=== PATIENT | female | born 1950 | race African-American/Black ===

== ENCOUNTER 2022-05-29 09:49 | Inpatient (IN) | payer OTHER, SELFPAY ==
[2022-05-29] VITALS (8 sets, daily range): BP systolic 105–175; BP diastolic 61–94; PULSE 62–127; RESP 16–26; TEMP 36.4–36.9; O2SAT 84–97; BMI 24.5
--- NOTE | ~2022-05-29 | XR_ITS ---
EXAMINATION: XR CHEST CLINICAL INFORMATION: Cough and fever COMPARISON: None TECHNIQUE: Frontal view of the chest was obtained. FINDINGS: The lungs are well-expanded with patchy opacity seen in both lung bases likely developing infiltrates and/or atelectasis. The upper lungs are clear. The heart size and pulmonary vascularity is normal. No gross bony abnormality seen. XR/XR chest 1V IMPRESSION: Patchy opacity in both lung bases likely developing infiltrates and/or atelectasis.
--- NOTE | ~2022-05-29 | US_ITS ---
EXAMINATION: US ABDOMEN COMPLETE CLINICAL INFORMATION: Elevated LFTs. COMPARISON: None TECHNIQUE: Real-time imaging of the abdominal viscera. FINDINGS: PANCREAS: Normal. ABDOMINAL AORTA: Atherosclerotic disease. The proximal abdominal aorta measures up to 2.4 cm. INFERIOR VENA CAVA: Visualized portions are normal. LIVER: Increased parenchymal parenchymal echogenicity but otherwise normal in size and shape. There is a 0.9 x 0.5 x 0.6 cm hyperechoic lesion in the left hepatic lobe. No biliary ductal dilatation. GALLBLADDER: Normal. The gallbladder is physiologically distended without evidence of stones, sludge, polyps, wall thickening or pericholecystic fluid. COMMON BILE DUCT: Normal in caliber measuring 0.2 cm in diameter. RIGHT KIDNEY: There is a 0.9 cm simple cyst in the midpole, for which no imaging follow-up is recommended. No hydronephrosis or renal calculi. The kidney measures 10.5 cm in maximum dimension. LEFT KIDNEY: Normal. No hydronephrosis. No renal calculi or focal parenchymal lesions. The kidney measures 9.6 cm in maximum dimension. SPLEEN: Normal. The spleen measures 8.9 cm in maximum dimension. FREE FLUID: None. US/US abdomen complete IMPRESSION: 1. Nonspecific 0.9 cm hyperechoic lesion in the left hepatic lobe. Recommend further evaluation with a dynamic abdominal MRI with and without intravenous contrast. 2. Increased echogenicity of the liver parenchyma is nonspecific but most commonly on the basis of diffuse hepatocellular disease such as hepatic steatosis. 3. Atherosclerotic disease of the abdominal aorta which measures up to 2.4 cm in diameter. 4. Simple cyst in the right kidney for which no imaging follow-up is recommended.
--- NOTE | 2022-05-29 10:40 | ECG_ITS ---
Test Reason : SOB Blood Pressure : / mmHG Vent. Rate : 112 BPM Atrial Rate : 112 BPM P-R Int : 126 ms QRS Dur : 088 ms QT Int : 324 ms P-R-T Axes : 058 024 057 degrees QTc Int : 442 ms Sinus tachycardia Possible Left atrial enlargement Borderline ECG No previous ECGs available Referred By: Joyce Prescott Electronically Signed By:CRISS BLOOM
--- NOTE | 2022-05-29 10:47 | ED.SOB ---
HPI - SOB/Dyspnea General Chief Complaint: Dyspnea Stated Complaint: SOB Cough Dizzy Time Seen by Provider: 05/29/22 10:26 Source: patient and family Mode of arrival: wheelchair Limitations: no limitations History of Present Illness HPI Narrative: 71 yo female from home hx of smoking but denies any other PMH states she has had 3 COVID vaccines reports shortness of breath and cough since . She feels weak and fatigued with anorexia as well. Last couple of days the patient is more confused. The patient denies every having anything like this before but was around a sick coughing child for the holidays MD elicited complaint: shortness of breath and cough Onset (ago): day(s) (7) Timing: progressively worsening Severity: moderate Exacerbating factors: exertion and coughing Relieving factors: nothing Associated symptoms: cough, sputum production, nausea/vomiting and chest congestion Treatment prior to arrival: none Related Data Home Medications Medication Instructions Recorded Confirmed multivitamin 1 tab PO DAILY 05/29/22 05/29/22 Allergies Allergy/AdvReac Type Severity Reaction Status Date / Time No Known Allergies Allergy Verified 05/29/22 10:25 Review of Systems Review of Systems: Constitutional : No Fever, pos Chills, pos fatigue, pos anorexia ENT/Mouth : No sore throat, No Rhinorrhea, No Swallowing Difficulty Eyes: No Eye Pain, No Swelling, No Redness Cardiovascular : No Chest Pain, positive SOB, No Orthopnea, positive Edema Respiratory : pos Cough, pos Sputum, No Wheezing, positive dyspnea Gastrointestinal : No Nausea, No Vomiting, No Diarrhea, No abdominal Pain, No Hematochezia, No Melena Genitourinary : No Dysuria, No Urinary Frequency, No Hematuria Musculoskeletal : No joint pain, No Myalgias Skin : No Skin Lesions, No rash Neuro : pos Weakness, No Numbness, No Dizziness, No Headache Psych : No Anxiety/Panic, No Depression Heme/Lymph: No Bruising, No Lymphadenopathy Endocrine : No Polyuria, No Polydipsia All other systems reviewed and are negative [facility] Past Medical History Attestation statement: The following information was validated with the patient. Medical History No pertinent past medical history Family History Family History Father Diabetes Mother Heart problem Social History Social History Alcohol intake: unknown Patient Tobacco Use Status: Current everyday Tobacco user Smoked in Last 30 Days: No Advance Directives: Yes Advance Directives Information Provided: No Advance Directives on File: No Physical Exam Vital Signs: Vital Signs: Last Vital Signs Temp 97.5 F 05/29/22 10:23 Pulse 96 05/29/22 15:44 Resp 17 05/29/22 15:44 BP 106/62 05/29/22 13:44 Pulse Ox 96 05/29/22 13:44 O2 Del Method 05/29/22 13:44 O2 Flow Rate 4 05/29/22 13:44 BMI result Body Mass Index 24.5 Appearance: Alert. Oriented X3. Mild acute distress. Eyes: Pupils equal, round and reactive to light. ENT: Pharynx dry MM Neck: Normal inspection. Neck supple. CVS: tachycardic heart rate and rhythm. Pulses normal. Respiratory: Mild respiratory distress - tachypnea, labored 84% on RA. Breath sounds very diminished and coarse, wet cough Abdomen: Soft and nontender. Skin: Skin warm and dry. Normal skin color. Normal skin turgor. Extremities: No lower extremity edema. No calf ttp Neuro: Oriented X 3. No motor deficit. No sensory deficit. Medications Administered Generic Name Dose Route Start Last Admin Trade Name Freq PRN Reason Stop Dose Admin Albuterol Sulfate 2.5 mg/ 0 mg 05/29/22 16:00 05/29/22 15:43 Ipratropium [place] 0.5 mg INHALE 2.5 each RQ4H WHILE AWAKE WYATT Administration Enoxaparin Sodium 40 mg 05/29/22 14:45 05/29/22 15:36 Enoxaparin Sodium 40 Mg/0.4 Ml Syringe SUBCUT 40 mg Q24H WYATT Administration Methylprednisolone Sodium Succinate 40 mg 05/29/22 14:45 05/29/22 15:37 Methylprednisolone Sod Succ 40 Mg/Ml Vial IVPUSH 40 mg Q12H WYATT Administration Oseltamivir Phosphate 30 mg 05/29/22 14:45 05/29/22 15:36 Oseltamivir Phosphate 30 Mg Capsule PO 30 mg Q12H WYATT Administration Sodium Chloride 3 ml 05/29/22 16:00 05/29/22 15:52 0.9 % Sodium Chloride Flush 3 Ml Syringe IVFLUSH 3 ml QSHIFT WYATT Administration Discontinued Medications Generic Name Dose Route Start Last Admin Trade Name Meredith PRN Reason Stop Dose Admin Acetaminophen 650 mg 05/29/22 10:37 05/29/22 11:25 Acetaminophen 325 Mg Tablet PO 05/29/22 10:38 650 mg ONCE ONE Administration Albuterol Sulfate 2.5 mg 05/29/22 10:37 05/29/22 11:21 Albuterol Sulfate (0.083%) 2.5 Mg/3 Ml Vial.Neb INHALE 05/29/22 10:38 2.5 mg ONCE ONE Administration Sodium Chloride 1,000 mls @ 999 mls/hr 05/29/22 10:45 05/29/22 12:53 Ns IVCONT 05/29/22 11:45 Infused .Q1H1M WYATT Infusion Ceftriaxone Sodium 1 gm/ 50 mls @ 100 mls/hr 05/29/22 11:43 05/29/22 13:27 Sodium Chloride IV 05/29/22 12:12 Infused ONCE ONE Infusion Azithromycin 500 mg/ Sodium 250 mls @ 125 mls/hr 05/29/22 11:43 05/29/22 15:15 Chloride IV 05/29/22 13:42 Infused ONCE ONE Infusion Medical Decision Making Medical Decision Making [facility] Narrative: 71 yo female smoker denies PMH here with c/o hypoxia, weakness, fatigue, cough after being exposed to sick child at this time will need labs, cultures, viral panel - CXR for pneumonia, IVF, tylenol, neb treatment - suspect infection denies CP VTE seems unlikely no recent travel went on a cruise in february. At this time planned admit given hypoxia. I have reviewed and interpreted the patient's labs and reviewed and interpreted radiologist readings of studies done in ED today. Differential Diagnosis Differential Diagnoses: The differential diagnosis associated with the presentation includes pneumonia, covid, CHF, viral illness Admission/Observation Consideration of admission/observation: Escalation of care including admission/observation considered admit for hypoxia Consult Healthcare Provider Management of the patient was discussed with: Hospitalist plan to admit Lab Data [facility] Lab Attestation statement: I reviewed the patient's lab results. Result Diagrams: 05/29/22 11:08 05/29/22 11:08 Labs: Lab Results 01/03/23 01/03/23 01/03/23 Range/Units 11:07 11:07 11:07 WBC (4.8-10.8) X10*3/uL RBC (4.20-5.50) X10*6/uL Hgb (12.0-16.0) g/dl Hct (37.0-47.0) % MCV (80.0-98.0) fL MCH (27.0-33.0) pg MCHC (31.0-35.0) g/dl RDW (11.0-16.0) % Plt Count (160-400) X10*3/uL MPV (9.4-12.3) fL Immature Gran % (Auto) (0.0-0.4) % Neut % (Auto) (45-73) % Lymph % (Auto) (20-40) % [place] % (Auto) (2-11) % Eos % (Auto) (0-4) % Baso % (Auto) (0-2) % Lymph # (Auto) (1.2-4.9) X10*3/uL [place] # (Auto) (0.1-1.2) X10*3/uL Eos # (Auto) (0.0-0.4) X10*3/uL Baso # (Auto) (0.0-0.2) X10*3/uL Abs Immat Gran (auto) (0.00-0.03) X10*3/uL Absolute Neuts (auto) (2.0-8.3) x10*3/uL Absolute Nucleated RBC (0.0-0.012) X10*3/uL Nucleated RBC % (auto) (0.0-0.2) /100WBC Smear Tech's Comments PT (10.0-13.1) SEC INR (0.9-1.1) VBG pH (7.32-7.43) VBG pCO2 mmHg VBG pO2 mmHg VBG HCO3 (22-26) mmol/L VBG O2 Saturation % VBG Base Excess mmol/L Sodium (135-145) mmol/L Potassium (3.3-5.1) mmol/L Chloride (96-108) mmol/L Carbon Dioxide (22-29) mmol/L Anion Gap (12-20) BUN (9-16) mg/dL Creatinine (0.5-1.4) mg/dL Estim Creat Clear Calc Estimated GFR Random Glucose (60-115) mg/dL Lactic Acid 2.3 H* (0.5-2.0) mmol/L Calcium (8.4-10.2) mg/dL Magnesium (1.6-2.6) mg/dL Ferritin 252 H (10-250) ng/mL Total Bilirubin (0.0-1.0) mg/dL Direct Bilirubin (0.0-0.5) mg/dL AST (5-31) U/L ALT (0-31) U/L Alkaline Phosphatase (39-117) U/L Lactate Dehydrogenase (122-220) U/L Troponin I High Sens 25.8 H (<3.5-17.0) ng/L C-Reactive Protein (< or = 0.50) mg/dL B-Natriuretic Peptide (<100) pg/mL Total Protein (6.5-8.0) g/dL Albumin (3.5-5.0) g/dL Procalcitonin ng/mL Urine Color Urine Appearance Urine pH (5.0-9.0) Ur Specific Justin (1.005-1.025) Urine Protein (Neg-Trace) mg/dL Urine Glucose (UA) (Negative) mg/dL Urine Ketones (Negative) mg/dL Urine Blood (Negative) Urine Nitrite (Negative) Ur Leukocyte Esterase (Negative) Urine RBC (0-2) /HPF Urine WBC (0-5) /HPF Ur Squamous Epith Cells (0-2) /HPF Urine Bacteria (None Seen) Hyaline Casts (0-2) /LPF Granular Casts Influenza Type A (PCR) (Negative) Influenza Type B (PCR) (Negative) RSV RNA Qual (PCR) (Negative) SARS-CoV-2 RNA (RT-PCR) (Negative) 05/29/22 05/29/22 05/29/22 Range/Units 11:07 11:07 11:08 WBC 6.9 (4.8-10.8) X10*3/uL RBC 4.36 (4.20-5.50) X10*6/uL Hgb 12.1 (12.0-16.0) g/dl Hct 36.7 L (37.0-47.0) % MCV 84.2 (80.0-98.0) fL MCH 27.8 (27.0-33.0) pg MCHC 33.0 (31.0-35.0) g/dl RDW 16.9 H (11.0-16.0) % Plt Count 189 (160-400) X10*3/uL MPV 11.4 (9.4-12.3) fL Immature Gran % (Auto) 0.6 H (0.0-0.4) % Neut % (Auto) 80.2 H (45-73) % Lymph % (Auto) 11.2 L (20-40) % [place] % (Auto) 7.6 (2-11) % Eos % (Auto) 0.0 (0-4) % Baso % (Auto) 0.4 (0-2) % Lymph # (Auto) 0.8 L (1.2-4.9) X10*3/uL [place] # (Auto) 0.5 (0.1-1.2) X10*3/uL Eos # (Auto) 0.0 (0.0-0.4) X10*3/uL Baso # (Auto) 0.0 (0.0-0.2) X10*3/uL Abs Immat Gran (auto) 0.04 H (0.00-0.03) X10*3/uL Absolute Neuts (auto) 5.5 (2.0-8.3) x10*3/uL Absolute Nucleated RBC 0.000 (0.0-0.012) X10*3/uL Nucleated RBC % (auto) 0.0 (0.0-0.2) /100WBC Smear Tech's Comments VERIFIED PT (10.0-13.1) SEC INR (0.9-1.1) VBG pH (7.32-7.43) VBG pCO2 mmHg VBG pO2 mmHg VBG HCO3 (22-26) mmol/L VBG O2 Saturation % VBG Base Excess mmol/L Sodium (135-145) mmol/L Potassium (3.3-5.1) mmol/L Chloride (96-108) mmol/L Carbon Dioxide (22-29) mmol/L Anion Gap (12-20) BUN (9-16) mg/dL Creatinine (0.5-1.4) mg/dL Estim Creat Clear Calc Estimated GFR Random Glucose (60-115) mg/dL Lactic Acid (0.5-2.0) mmol/L Calcium (8.4-10.2) mg/dL Magnesium (1.6-2.6) mg/dL Ferritin (10-250) ng/mL Total Bilirubin (0.0-1.0) mg/dL Direct Bilirubin (0.0-0.5) mg/dL AST (5-31) U/L ALT (0-31) U/L Alkaline Phosphatase (39-117) U/L Lactate Dehydrogenase (122-220) U/L Troponin I High Sens (<3.5-17.0) ng/L C-Reactive Protein (< or = 0.50) mg/dL B-Natriuretic Peptide (<100) pg/mL Total Protein (6.5-8.0) g/dL Albumin (3.5-5.0) g/dL Procalcitonin 1.64 ng/mL Urine Color Urine Appearance Urine pH (5.0-9.0) Ur Specific Justin (1.005-1.025) Urine Protein (Neg-Trace) mg/dL Urine Glucose (UA) (Negative) mg/dL Urine Ketones (Negative) mg/dL Urine Blood (Negative) Urine Nitrite (Negative) Ur Leukocyte Esterase (Negative) Urine RBC (0-2) /HPF Urine WBC (0-5) /HPF Ur Squamous Epith Cells (0-2) /HPF Urine Bacteria (None Seen) Hyaline Casts (0-2) /LPF Granular Casts Influenza Type A (PCR) POSITIVE A (Negative) Influenza Type B (PCR) NEGATIVE (Negative) RSV RNA Qual (PCR) NEGATIVE (Negative) SARS-CoV-2 RNA (RT-PCR) NEGATIVE (Negative) 05/29/22 05/29/22 05/29/22 Range/Units 11:08 11:08 11:08 WBC (4.8-10.8) X10*3/uL RBC (4.20-5.50) X10*6/uL Hgb (12.0-16.0) g/dl Hct (37.0-47.0) % MCV (80.0-98.0) fL MCH (27.0-33.0) pg MCHC (31.0-35.0) g/dl RDW (11.0-16.0) % Plt Count (160-400) X10*3/uL MPV (9.4-12.3) fL Immature Gran % (Auto) (0.0-0.4) % Neut % (Auto) (45-73) % Lymph % (Auto) (20-40) % [place] % (Auto) (2-11) % Eos % (Auto) (0-4) % Baso % (Auto) (0-2) % Lymph # (Auto) (1.2-4.9) X10*3/uL [place] # (Auto) (0.1-1.2) X10*3/uL Eos # (Auto) (0.0-0.4) X10*3/uL Baso # (Auto) (0.0-0.2) X10*3/uL Abs Immat Gran (auto) (0.00-0.03) X10*3/uL Absolute Neuts (auto) (2.0-8.3) x10*3/uL Absolute Nucleated RBC (0.0-0.012) X10*3/uL Nucleated RBC % (auto) (0.0-0.2) /100WBC Smear Tech's Comments PT 17.8 H (10.0-13.1) SEC INR 1.5 H (0.9-1.1) VBG pH (7.32-7.43) VBG pCO2 mmHg VBG pO2 mmHg VBG HCO3 (22-26) mmol/L VBG O2 Saturation % VBG Base Excess mmol/L Sodium 134 L (135-145) mmol/L Potassium 3.8 (3.3-5.1) mmol/L Chloride 96 (96-108) mmol/L Carbon Dioxide 27 (22-29) mmol/L Anion Gap 15 (12-20) BUN 23 H (9-16) mg/dL Creatinine 1.03 (0.5-1.4) mg/dL Estim Creat Clear Calc 46.8 Estimated GFR 53 Random Glucose 136 H (60-115) mg/dL Lactic Acid (0.5-2.0) mmol/L Calcium 8.4 (8.4-10.2) mg/dL Magnesium 2.4 (1.6-2.6) mg/dL Ferritin (10-250) ng/mL Total Bilirubin 0.9 (0.0-1.0) mg/dL Direct Bilirubin 0.4 (0.0-0.5) mg/dL AST 68 H (5-31) U/L ALT 33 H (0-31) U/L Alkaline Phosphatase 60 (39-117) U/L Lactate Dehydrogenase 351 H (122-220) U/L Troponin I High Sens (<3.5-17.0) ng/L C-Reactive Protein 26.88 H (< or = 0.50) mg/dL B-Natriuretic Peptide 39 (<100) pg/mL Total Protein 7.3 (6.5-8.0) g/dL Albumin 3.7 (3.5-5.0) g/dL Procalcitonin ng/mL Urine Color Urine Appearance Urine pH (5.0-9.0) Ur Specific Justin (1.005-1.025) Urine Protein (Neg-Trace) mg/dL Urine Glucose (UA) (Negative) mg/dL Urine Ketones (Negative) mg/dL Urine Blood (Negative) Urine Nitrite (Negative) Ur Leukocyte Esterase (Negative) Urine RBC (0-2) /HPF Urine WBC (0-5) /HPF Ur Squamous Epith Cells (0-2) /HPF Urine Bacteria (None Seen) Hyaline Casts (0-2) /LPF Granular Casts Influenza Type A (PCR) (Negative) Influenza Type B (PCR) (Negative) RSV RNA Qual (PCR) (Negative) SARS-CoV-2 RNA (RT-PCR) (Negative) 05/29/22 05/29/22 Range/Units 11:12 12:10 WBC (4.8-10.8) X10*3/uL RBC (4.20-5.50) X10*6/uL Hgb (12.0-16.0) g/dl Hct (37.0-47.0) % MCV (80.0-98.0) fL MCH (27.0-33.0) pg MCHC (31.0-35.0) g/dl RDW (11.0-16.0) % Plt Count (160-400) X10*3/uL MPV (9.4-12.3) fL Immature Gran % (Auto) (0.0-0.4) % Neut % (Auto) (45-73) % Lymph % (Auto) (20-40) % [place] % (Auto) (2-11) % Eos % (Auto) (0-4) % Baso % (Auto) (0-2) % Lymph # (Auto) (1.2-4.9) X10*3/uL [place] # (Auto) (0.1-1.2) X10*3/uL Eos # (Auto) (0.0-0.4) X10*3/uL Baso # (Auto) (0.0-0.2) X10*3/uL Abs Immat Gran (auto) (0.00-0.03) X10*3/uL Absolute Neuts (auto) (2.0-8.3) x10*3/uL Absolute Nucleated RBC (0.0-0.012) X10*3/uL Nucleated RBC % (auto) (0.0-0.2) /100WBC Smear Tech's Comments PT (10.0-13.1) SEC INR (0.9-1.1) VBG pH 7.47 H (7.32-7.43) VBG pCO2 36 mmHg VBG pO2 56 mmHg VBG HCO3 27 H (22-26) mmol/L VBG O2 Saturation 83.0 % VBG Base Excess 3.5 mmol/L Sodium (135-145) mmol/L Potassium (3.3-5.1) mmol/L Chloride (96-108) mmol/L Carbon Dioxide (22-29) mmol/L Anion Gap (12-20) BUN (9-16) mg/dL Creatinine (0.5-1.4) mg/dL Estim Creat Clear Calc Estimated GFR Random Glucose (60-115) mg/dL Lactic Acid (0.5-2.0) mmol/L Calcium (8.4-10.2) mg/dL Magnesium (1.6-2.6) mg/dL Ferritin (10-250) ng/mL Total Bilirubin (0.0-1.0) mg/dL Direct Bilirubin (0.0-0.5) mg/dL AST (5-31) U/L ALT (0-31) U/L Alkaline Phosphatase (39-117) U/L Lactate Dehydrogenase (122-220) U/L Troponin I High Sens (<3.5-17.0) ng/L C-Reactive Protein (< or = 0.50) mg/dL B-Natriuretic Peptide (<100) pg/mL Total Protein (6.5-8.0) g/dL Albumin (3.5-5.0) g/dL Procalcitonin ng/mL Urine Color Dark Yellow Urine Appearance Turbid Urine pH 5.5 (5.0-9.0) Ur Specific Justin 1.025 (1.005-1.025) Urine Protein 300 (3+) H (Neg-Trace) mg/dL Urine Glucose (UA) Negative (Negative) mg/dL Urine Ketones Trace (Negative) mg/dL Urine Blood Large (3+) H (Negative) Urine Nitrite Negative (Negative) Ur Leukocyte Esterase Trace H (Negative) Urine RBC 11-20 H (0-2) /HPF Urine WBC 0-5 (0-5) /HPF Ur Squamous Epith Cells >20 (0-2) /HPF Urine Bacteria 3+ (None Seen) Hyaline Casts >20 (0-2) /LPF Granular Casts Present Influenza Type A (PCR) (Negative) Influenza Type B (PCR) (Negative) RSV RNA Qual (PCR) (Negative) SARS-CoV-2 RNA (RT-PCR) (Negative) Independent Interpretation I performed an independent interpretation of an: EKG, Plain X-Ray and Ultrasound Interpretation: Rate: 112 Rhythm: sinus tach [place]: normal Normal P waves. Normal GAURI. Normal QRS complex. ST T wave : no DAVEY qTC: normal prior studies: no acute ischemia The study has been interpreted contemporaneously by me. . Radiology Impression Discussion of test interpretation with radiology: I have reviewed the radiologist's reading. Independent Historian Clinical information obtained from an independent historian. History obtained from or confirmed by: Other (daughter) Prescription Management I considered prescription management with: Antiviral (6 days from illness out of window for tamiflu) Critical Care Time Critical Care Time Critical Care Time: Yes Total Critical Care Time: 35 Attestation: neb, IVF, IV antibiotics supplemental oxygen for hypoxia - 4L NC, admission to hospital repeat lactic acidosis, admission I attest to this time spent taking care of the patient Discharge Plan Discharge Clinical Impression: Hypoxia, Acidosis, lactic, Influenza A Pneumonia Qualifiers: Pneumonia type: due to unspecified organism Laterality: bilateral Lung location: unspecified part of lung Qualified Code(s): J18.9 - Pneumonia, unspecified organism Patient Disposition: Admitted As Inpatient
[2022-05-29 11:17] LABS: Venous Blood Gas Refer to POC result
[2022-05-29 11:17] LABS: VBG Base Excess 3.5 mmol/L; VBG HCO3 27 mmol/L (22-26); VBG pCO2 36 mmHg; VBG pH 7.47 (7.32-7.43); VBG pO2 56 mmHg
[2022-05-29 11:18] LABS: Basophils Percent Auto 0.4 % (0-2); Hematocrit 36.7 % (37.0-47.0); Hemoglobin 12.1 g/dl (12.0-16.0); Imm Gran Abs Auto 0.04 X10*3/uL (0.00-0.03); Imm Gran Pct Auto 0.6 % (0.0-0.4); Lymphocytes Absolute Auto 0.8 X10*3/uL (1.2-4.9); Lymphocytes Percent Auto 11.2 % (20-40); MANUAL DIFF FLAG SCAN; Mean Corpuscular Hemoglobin 27.8 pg (27.0-33.0); Mean Corpuscular Volume 84.2 fL (80.0-98.0); Mean Platelet Volume 11.4 fL (9.4-12.3); Monocytes Absolute Auto 0.5 X10*3/uL (0.1-1.2); Monocytes Percent Auto 7.6 % (2-11); Neutrophils Absolute Auto 5.5 x10*3/uL (2.0-8.3); Neutrophils Percent Auto 80.2 % (45-73); Platelet Count 189 X10*3/uL (160-400); Red Blood Count 4.36 X10*6/uL (4.20-5.50); Red Cell Distribution Width 16.9 % (11.0-16.0); SCAN SMEAR FLAG 1; White Blood Count 6.9 X10*3/uL (4.8-10.8)
[2022-05-29] MEDS: Albuterol Sulfate (0.083%) 2.5 MG/3 ML VIAL.NEB INHALE (11:21)
[2022-05-29 11:22] LABS: INTERNATIONAL NORM RATIO 1.5 (0.9-1.1); Prothrombin Time 17.8 SEC (10.0-13.1)
[2022-05-29] MEDS: 0.9 % Sodium Chloride 1,000 ML 999 ML IVCONT (11:25)
[2022-05-29] MEDS: Acetaminophen 325 MG TABLET 650 MG PO (11:25)
[2022-05-29 11:34] LABS: Lactic Acid 2.3 mmol/L (0.5-2.0)
[2022-05-29 11:39] LABS: Troponin-I High Sensitivity 25.8 ng/L (<3.5-17.0)
[2022-05-29 11:39] LABS: B Type Natriuretic Peptide 39 pg/mL (<100)
[2022-05-29 11:40] LABS: Alanine Aminotransferase 33 U/L (0-31); Albumin Level 3.7 g/dL (3.5-5.0); Alkaline Phosphatase 60 U/L (39-117); Anion Gap 15 (12-20); Aspartate Amino Transferase 68 U/L (5-31); Bilirubin Direct 0.4 mg/dL (0.0-0.5); Bilirubin Total 0.9 mg/dL (0.0-1.0); Blood Urea Nitrogen 23 mg/dL (9-16); C Reactive Protein 26.88 mg/dL (< or = 0.50); Calcium 8.4 mg/dL (8.4-10.2); Carbon Dioxide 27 mmol/L (22-29); Chloride 96 mmol/L (96-108); Creatinine Clr Calc Pharmacy 46.8; Estimated Glomerular Filt Rate 53; Glucose Random 136 mg/dL (60-115); Lactate Dehydrogenase 351 U/L (122-220); Magnesium 2.4 mg/dL (1.6-2.6); Potassium 3.8 mmol/L (3.3-5.1); Sodium 134 mmol/L (135-145); Total Protein 7.3 g/dL (6.5-8.0)
[2022-05-29 11:49] LABS: SLIDE REVIEW VERIFIED
--- NOTE | 2022-05-29 11:49 | PHA.MEDREC ---
Pharmacy Consult ? Medication Reconciliation Pharmacy has completed the medication reconciliation.
[2022-05-29 11:58] LABS: Influenza A PCR POSITIVE (Negative); Influenza B PCR NEGATIVE (Negative); Resp Syncy Virus RNA Qual PCR NEGATIVE (Negative); SARS COV2 PCR INHOUSE NEGATIVE (Negative)
[2022-05-29 12:00] LABS: Ferritin 252 ng/mL (10-250); Procalcitonin 1.64 ng/mL
--- NOTE | 2022-05-29 12:00 | PC.NURSE ---
Patient presents to ED with report of increased SOB denies any pulmonary history not on O2 at home denies home medications. AOx 4 neuros intact no factial droop noted no drift or deviation of tongue placed on O2 with good effect LS diminished on auscultation. NSR on threat monitoring analyst denies chest pain. IV access and labs collected and sent
[2022-05-29] MEDS: cefTRIAXone sodium 1 GM in 0.9 % Sodium Chloride 50 ML IV (12:09)
[2022-05-29 12:26] LABS: Appearance Urine Turbid; Color Urine Dark Yellow; Glucose Urine UA Negative (Negative); Leukocyte Esterase Urine Trace (Negative); Nitrite Urine Negative (Negative); PH 5.5 (5.0-9.0); Specific Gravity - Urine 1.025 (1.005-1.025); UMIC TRIGGER UACC YES; Urine Blood Large (3+) (Negative); Urine Ketones Trace mg/dL (Negative); Urine Protein 300 (3+) mg/dL (Neg-Trace)
[2022-05-29 12:34] LABS: Bacteria Urine 3+ (None Seen); Granular Casts Urine Present; Hyaline Casts Urine >20 /LPF (0-2); Squamous Epithelial Cell Urine >20 /HPF (0-2); WBC Urine 0-5 /HPF (0-5)
[2022-05-29] MEDS: Azithromycin 500 MG in 0.9 % Sodium Chloride 250 ML 125 MG IV (12:51)
[2022-05-29 13:13] LABS: Reflex Lactate? Lactic Acid Added
--- NOTE | 2022-05-29 13:18 | P.HPHOSP_ITS ---
History of Present Illness Date of Service: 05/29/22 Attending physician on admission: Gold Perez Chief Complaint: SOB Pt is a 71-year-old female with PMH significant only for smoking a pack of cigarettes a day and drinking a beer a day who presents to the ED with with 3-4 days of worsening shortness of breath with exertion and nonproductive cough. Presents today due to feeling extremely weak, having difficulty breathing, and having prolonged bouts of coughing this morning. Patient denies fever, chills, nausea, vomiting. No chest pain/pressure, palpitations. No abdominal or flank pain. Denies dysuria or urinary frequency. Patient denies a history of a bleeding disorder and denies any incidence of easy bruising or bleeding. Denies a history of epistaxis. Patient denies any confusion. In the ED patient was found to be tachycardic, tachypneic, and hypoxic at O2 sat of 84 on room air. Labs were significant for no leukocytosis, PT of 17.8 and INR of 1.5, lactic acid of 2.3, mildly elevated troponin of 25.8, C-reactive protein of 26.8. Urine positive for UTI. Patient is positive for influenza A. CXR showed patchy opacities in both lung bases likely developing infiltrates and/or atelectasis. EKG showed sinus tach. Pt was treated with azithromycin, ceftriaxone, and albuterol. Pt will be admitted to the hospital for treatment and evaluation of hypoxia in the setting of influenza infection. Review of Systems Review of Systems: Shortness of breath Generalized weakness and fatigue Nonproductive cough Denies chest pain/pressure, palpitations No abdominal pain Denies dysuria Yes all other systems are reviewed and are negative [facility] Medical History No pertinent past medical history Family History Father Diabetes Mother Heart problem Social History Alcohol intake: unknown Patient Tobacco Use Status: Current everyday Tobacco user Smoked in Last 30 Days: No Advance Directives: Yes Advance Directives Information Provided: No Advance Directives on File: No Meds Allergies Allergy/AdvReac Type Severity Reaction Status Date / Time No Known Allergies Allergy Verified 05/29/22 10:25 Active Medications: Current Medications Azithromycin 500 mg/ Sodium (Chloride) 250 mls @ 125 mls/hr IV ONCE ONE Stop: 05/29/22 13:42 Last Admin: 05/29/22 12:51 Dose: 125 mls/hr Pharmacy Consult (Consult Rx Perform Med Rec) 1 each MISCELLANE ONCE PRN PRN Reason: Consult order Home Medications Medication Instructions Recorded Confirmed Last Taken Type multivitamin 1 tab PO DAILY 05/29/22 05/29/22 Unknown History Physical Exam Vital Signs and Narrative: Vital Signs: Last Vital Signs Temp 97.5 F 05/29/22 10:23 Pulse 110 H 05/29/22 11:24 Resp 21 H 05/29/22 11:24 BP 175/84 H 05/29/22 10:23 Pulse Ox 84 L 05/29/22 10:23 O2 Del Method 05/29/22 10:23 BMI result Body Mass Index 24.5 Constitutional: Alert, in no acute distress. Mental Status: Oriented to person, place and time. Eyes: Pupils are equal, round, and reactive to light. Ear, Nose, and Throat: Oropharynx clear, mucous membranes moist. Ears and nose without deformities. Trachea midline. Respiratory: Diminished breath sounds bilaterally. Wet cough noted. Cardiovascular: S1, S2. Tachycardic. No murmurs, rubs, or gallops. Gastrointestinal: Abdomen soft, non-tender, non-distended. Normal bowel sounds. : No CVA tenderness Neurologic: Cranial nerves II-XI are grossly intact. No focal neurological deficits. Moves all extremities spontaneously. Skin: No rashes or lesions noted. Musculoskeletal: No cyanosis or clubbing. Extremities: No edema. Psychiatric: Normal mood and affect. Results Labs CBC and Chem 7: 05/29/22 11:08 05/29/22 11:08 Labs: Laboratory Results - last 24 hr 05/29/22 05/29/22 05/29/22 11:07 11:07 11:07 MCV MCH MCHC RDW Plt Count MPV Immature Gran % (Auto) Neut % (Auto) Lymph % (Auto) [place] % (Auto) Eos % (Auto) Baso % (Auto) Lymph # (Auto) [place] # (Auto) Eos # (Auto) Baso # (Auto) Abs Immat Gran (auto) Absolute Neuts (auto) Absolute Nucleated RBC Nucleated RBC % (auto) Smear Tech's Comments PT INR VBG pH VBG pCO2 VBG pO2 VBG HCO3 VBG O2 Saturation VBG Base Excess Anion Gap Estim Creat Clear Calc Estimated GFR Random Glucose Lactic Acid 2.3 H* Calcium Magnesium Ferritin 252 H Total Bilirubin Direct Bilirubin AST ALT Alkaline Phosphatase Lactate Dehydrogenase Troponin I High Sens 25.8 H C-Reactive Protein B-Natriuretic Peptide Total Protein Albumin Procalcitonin Urine Color Urine Appearance Urine pH Ur Specific [place] Urine Protein Urine Glucose (UA) Urine Ketones Urine Blood Urine Nitrite Ur Leukocyte Esterase Urine RBC Urine WBC Ur Squamous Epith Cells Urine Bacteria Hyaline Casts Granular Casts Influenza Type A (PCR) Influenza Type B (PCR) RSV RNA Qual (PCR) SARS-CoV-2 RNA (RT-PCR) 05/29/22 05/29/22 05/29/22 11:07 11:07 11:08 MCV 84.2 MCH 27.8 MCHC 33.0 RDW 16.9 H Plt Count 189 MPV 11.4 Immature Gran % (Auto) 0.6 H Neut % (Auto) 80.2 H Lymph % (Auto) 11.2 L [place] % (Auto) 7.6 Eos % (Auto) 0.0 Baso % (Auto) 0.4 Lymph # (Auto) 0.8 L [place] # (Auto) 0.5 Eos # (Auto) 0.0 Baso # (Auto) 0.0 Abs Immat Gran (auto) 0.04 H Absolute Neuts (auto) 5.5 Absolute Nucleated RBC 0.000 Nucleated RBC % (auto) 0.0 Smear Tech's Comments VERIFIED PT INR VBG pH VBG pCO2 VBG pO2 VBG HCO3 VBG O2 Saturation VBG Base Excess Anion Gap Estim Creat Clear Calc Estimated GFR Random Glucose Lactic Acid Calcium Magnesium Ferritin Total Bilirubin Direct Bilirubin AST ALT Alkaline Phosphatase Lactate Dehydrogenase Troponin I High Sens C-Reactive Protein B-Natriuretic Peptide Total Protein Albumin Procalcitonin 1.64 Urine Color Urine Appearance Urine pH Ur Specific [place] Urine Protein Urine Glucose (UA) Urine Ketones Urine Blood Urine Nitrite Ur Leukocyte Esterase Urine RBC Urine WBC Ur Squamous Epith Cells Urine Bacteria Hyaline Casts Granular Casts Influenza Type A (PCR) POSITIVE A Influenza Type B (PCR) NEGATIVE RSV RNA Qual (PCR) NEGATIVE SARS-CoV-2 RNA (RT-PCR) NEGATIVE 05/29/22 05/29/22 05/29/22 11:08 11:08 11:08 MCV MCH MCHC RDW Plt Count MPV Immature Gran % (Auto) Neut % (Auto) Lymph % (Auto) [place] % (Auto) Eos % (Auto) Baso % (Auto) Lymph # (Auto) [place] # (Auto) Eos # (Auto) Baso # (Auto) Abs Immat Gran (auto) Absolute Neuts (auto) Absolute Nucleated RBC Nucleated RBC % (auto) Smear Tech's Comments PT 17.8 H INR 1.5 H VBG pH VBG pCO2 VBG pO2 VBG HCO3 VBG O2 Saturation VBG Base Excess Anion Gap 15 Estim Creat Clear Calc 46.8 Estimated GFR 53 Random Glucose 136 H Lactic Acid Calcium 8.4 Magnesium 2.4 Ferritin Total Bilirubin 0.9 Direct Bilirubin 0.4 AST 68 H ALT 33 H Alkaline Phosphatase 60 Lactate Dehydrogenase 351 H Troponin I High Sens C-Reactive Protein 26.88 H B-Natriuretic Peptide 39 Total Protein 7.3 Albumin 3.7 Procalcitonin Urine Color Urine Appearance Urine pH Ur Specific [place] Urine Protein Urine Glucose (UA) Urine Ketones Urine Blood Urine Nitrite Ur Leukocyte Esterase Urine RBC Urine WBC Ur Squamous Epith Cells Urine Bacteria Hyaline Casts Granular Casts Influenza Type A (PCR) Influenza Type B (PCR) RSV RNA Qual (PCR) SARS-CoV-2 RNA (RT-PCR) 05/29/22 05/29/22 11:12 12:10 MCV MCH MCHC RDW Plt Count MPV Immature Gran % (Auto) Neut % (Auto) Lymph % (Auto) [place] % (Auto) Eos % (Auto) Baso % (Auto) Lymph # (Auto) [place] # (Auto) Eos # (Auto) Baso # (Auto) Abs Immat Gran (auto) Absolute Neuts (auto) Absolute Nucleated RBC Nucleated RBC % (auto) Smear Tech's Comments PT INR VBG pH 7.47 H VBG pCO2 36 VBG pO2 56 VBG HCO3 27 H VBG O2 Saturation 83.0 VBG Base Excess 3.5 Anion Gap Estim Creat Clear Calc Estimated GFR Random Glucose Lactic Acid Calcium Magnesium Ferritin Total Bilirubin Direct Bilirubin AST ALT Alkaline Phosphatase Lactate Dehydrogenase Troponin I High Sens C-Reactive Protein B-Natriuretic Peptide Total Protein Albumin Procalcitonin Urine Color Dark Yellow Urine Appearance Turbid Urine pH 5.5 Ur Specific [place] 1.025 Urine Protein 300 (3+) H Urine Glucose (UA) Negative Urine Ketones Trace Urine Blood Large (3+) H Urine Nitrite Negative Ur Leukocyte Esterase Trace H Urine RBC 11-20 H Urine WBC 0-5 Ur Squamous Epith Cells >20 Urine Bacteria 3+ Hyaline Casts >20 Granular Casts Present Influenza Type A (PCR) Influenza Type B (PCR) RSV RNA Qual (PCR) SARS-CoV-2 RNA (RT-PCR) Imaging Radiologist's Impressions: Impressions Chest X-Ray 05/29/22 11:00 IMPRESSION: Patchy opacity in both lung bases likely developing infiltrates and/or atelectasis. Assessment and Plan (1) Hypoxia: Status: Acute (2) Acidosis, lactic: Status: Acute (3) Influenza A: Status: Acute Plan Pt is a 71-year-old female with PMH significant only for smoking a pack of cigarettes a day and drinking a beer a day who presents to the ED with with 3-4 days of worsening shortness of breath with exertion and nonproductive cough. Tested positive for Influenza A. Patient will be admitted to the hospital for treatment evaluation of hypoxia in the setting of influenza infection. Hypoxic respiratory failure in setting of influenza a infection Tamiflu 30 mg b.i.d. 1/5 days, renally dosed DuoNebs Q 4 while awake Solu-Medrol 40 mg b.i.d. Benzonatate t.i.d. p.r.n. for cough Monitor respiratory status Viral Sepsis No evidence of bacterial infection Tachypnea, tachycardia, elevated lactate likely all due to viral infection Elevated lactic acid Likely secondary to influenza infection Trend labs Bacteriuria Ceftriaxone for prophylactic treatment while awaiting cultures Elevated PT, INR Etiology unclear possibly secondary to influenza infection Repeat coag studies in 2 days and trend Full Code Attending:?Dr. Perez DVT Prophylaxis: Lovenox Pt will require a hospitalization of at least two nights for treatment of?hypoxic respiratory failure in setting of influenza. Time Spent With Patient Time: Total time managing care of this patient today ____ minutes. Quality Stroke Does the patient have a stroke diagnosis?: No VTE Prior VTE?: No VTE Risk Level:: Medical - moderate - high VTE Device Contraindication: Treatment Not Indicated VTE Drug Contraindication: N/A - Med Ordered
[2022-05-29] MEDS: Oseltamivir Phosphate 30 MG CAPSULE PO (15:36)
[2022-05-29] MEDS: Enoxaparin Sodium 40 MG/0.4 ML SYRINGE SUBCUT (15:36)
[2022-05-29] MEDS: methylPREDNISolone Sod Succ 40 MG/ML VIAL IVPUSH (15:37)
[2022-05-29 15:44] LABS: ~Lactic Acid-LAB USE ONLY 1.2 mmol/L (0.5-2.0)
[2022-05-29] MEDS: 0.9 % Sodium Chloride Flush 3 ML SYRINGE IVFLUSH (15:52)
--- NOTE | 2022-05-29 18:11 | PC.NURSE ---
Patient sleeping easily arouse no distress noted will CTM
--- NOTE | 2022-05-29 18:59 | PC.NURSE ---
Addendum entered by Ashley Monzon RN 05/29/22 20:07: report given to IRVIN Mcclure Addendum entered by Ashley Monzon RN 05/29/22 19:32: pt is alert and oriented resting in bed no signs of acute distress notice breathing equally unlabored pt on continuos cardiac monitoring denies any chest pain daughter by bedside Original Note: report received from IRVIN Quiñones
[2022-05-30] VITALS (10 sets, daily range): BP systolic 105–137; BP diastolic 59–76; PULSE 74–105; RESP 14–20; TEMP 36.1–36.8; O2SAT 89–100
--- NOTE | 2022-05-30 00:58 | PC.NURSE ---
Patient is resting comfortably with her eyes closed. RR 18. Breathing is non-labored. O2 Sat 98% on O2 at 4 LPM NC. No s/s of distress noted.
[2022-05-30] MEDS: Oseltamivir Phosphate 30 MG CAPSULE PO ×2 (02:16→13:58)
[2022-05-30] MEDS: methylPREDNISolone Sod Succ 40 MG/ML VIAL IVPUSH ×2 (02:16→13:59)
--- NOTE | 2022-05-30 06:23 | MHC.EDTECH ---
PT SLEPT ALL NIGHT ,USE BED SIDE COMMODE AT 6 AM ,CLEAN UP FRESH LINEN MISHA CLEAN CARLOS GIVEN ,PT HAD 120 ML ORANGE JUICE .
[2022-05-30 07:27] LABS: Anion Gap 13 (12-20); Blood Urea Nitrogen 15 mg/dL (9-16); Calcium 8.2 mg/dL (8.4-10.2); Carbon Dioxide 29 mmol/L (22-29); Chloride 99 mmol/L (96-108); Estimated Glomerular Filt Rate > 60; Glucose Random 148 mg/dL (60-115); Potassium 4.3 mmol/L (3.3-5.1); Sodium 137 mmol/L (135-145)
--- NOTE | 2022-05-30 09:01 | MHC.CM.PN ---
Patient is Influenza (+) and unavailable by phone; CM spoke with Daughter/Mica @ [phone]. Patient lives alone in an apartment and is employed, required no DME nor services [employer], has not seen her PCP in 4 years and not been hospitalized since the of her Daughter. Home, self care is the goal and CM has initiated and will follow for dc planning. Patient has received [employer] vax x2.
[2022-05-30] MEDS: Multivitamin TABLET 1 TAB PO (09:09)
[2022-05-30] MEDS: 0.9 % Sodium Chloride Flush 3 ML SYRINGE IVFLUSH ×3 (09:10→19:29)
[2022-05-30] MEDS: cefTRIAXone sodium 1 GM in 0.9 % Sodium Chloride 50 ML IV (11:53)
--- NOTE | 2022-05-30 13:51 | HO.PM.IMPN ---
Subjective Subjective Date of Service: 05/30/22 Interval History: cc: sob interval history:improving Physical Exam Vital Signs: Vital Signs: Last Vital Signs Temp 98.2 F 05/30/22 12:00 Pulse 88 05/30/22 12:11 Resp 20 05/30/22 12:11 BP 122/69 05/30/22 12:00 Pulse Ox 91 L 05/30/22 12:00 O2 Del Method 05/30/22 12:00 O2 Flow Rate 4 05/30/22 07:38 BMI result Body Mass Index 24.5 General: AO X 3, no acute distress Resp: wheezsing bilateral, no accessory muscles used CVS: S1,S2,RRR GI: soft, non tender, non distended Neuro: motor grossly intact, alert Psych: appropriate affect, appropriate insight Objective Data Active Medications Acetaminophen (Acetaminophen 325 Mg Tablet) 650 mg PO Q6H PRN PRN Reason: Pain, Mild (Pain Scale 1-3) Benzonatate (Benzonatate 100 Mg Capsule) 100 mg PO TID PRN PRN Reason: Cough Albuterol Sulfate 2.5 mg/ (Ipratropium [place] 0.5 mg) 0 mg INHALE RQ4H WHILE AWAKE [facility] Last Admin: 05/30/22 12:08 Dose: 2.5 each Documented By: AL Docusate Sodium (Docusate Sodium 100 Mg Capsule) 100 mg PO DAILY PRN PRN Reason: Constipation Enoxaparin Sodium (Enoxaparin Sodium 40 Mg/0.4 Ml Syringe) 40 mg SUBCUT Q24H [facility] Last Admin: 05/29/22 15:36 Dose: 40 mg Documented By: MARBELLA Ceftriaxone Sodium 1 gm/ (Sodium Chloride) 50 mls @ 100 mls/hr IV Q24H [facility] Last Infusion: 05/30/22 12:28 Dose: 0 mls/hr Documented By: KIP Methylprednisolone Sodium Succinate (Methylprednisolone Sod Succ 40 Mg/Ml Vial) 40 mg IVPUSH Q12H [facility] Last Admin: 05/30/22 02:16 Dose: 40 mg Documented By: SANDHYA Multivitamins/Vitamin C (Multivitamin Tablet) 1 tab PO DAILY [facility] Last Admin: 05/30/22 09:09 Dose: 1 tab Documented By: CHUN Ondansetron HCl (Ondansetron Hcl 4 Mg/2 Ml Vial) 4 mg IVPUSH Q8H PRN PRN Reason: Nausea and Vomiting Oseltamivir Phosphate (Oseltamivir Phosphate 30 Mg Capsule) 30 mg PO Q12H [facility] Last Admin: 05/30/22 02:16 Dose: 30 mg Documented By: SANDHYA Pharmacy Consult (Consult Rx Perform Med Rec) 1 each MISCELLANE ONCE PRN PRN Reason: Consult order Sodium Chloride (0.9 % Sodium Chloride Flush 3 Ml Syringe) 3 ml IVFLUSH QSHIFT [facility] Last Admin: 05/30/22 09:10 Dose: 3 ml Documented By: CHUN Labs CBC & Chem 7: 05/29/22 11:08 05/30/22 06:19 Labs: Laboratory Results - last 24 hr 05/29/22 05/30/22 15:26 06:19 Anion Gap 13 Estim Creat Clear Calc 71.0 Estimated GFR > 60 Random Glucose 148 H Lactic Acid F/U @ 2Hr 1.2 Calcium 8.2 L Microbiology Microbiology Results: Microbiology 05/29/22 11:07 Blood Culture - Preliminary Blood - Venous No growth after 24 hours. 05/29/22 11:07 Blood Culture - Preliminary Blood - Venous No growth after 24 hours. Assessment and Plan (1) Pneumonia: Status: Acute Plan 71-year-old female with PMH significant only for smoking a pack of cigarettes a day and drinking a beer a day who presents to the ED with with 3-4 days of worsening shortness of breath with exertion and nonproductive cough. Tested positive for Influenza A.? acute Hypoxic respiratory failure in setting of influenza a infection and likely copd with acute decompensation Tamiflu 30 mg b.i.d. 2/5 days, renally dosed DuoNebs Q 4 while awake Solu-Medrol 40 mg b.i.d. Benzonatate t.i.d. p.r.n. for cough wean o2 as tolerated Viral Sepsis No evidence of bacterial infection Tachypnea, tachycardia, elevated lactate likely all due to viral infection Bacteruria Ceftriaxone empirically transaminitis with elevated INR ?liver disease check US, viral hepatitis panel Full Code DVT Prophylaxis: Lovenox reason for continued hospitalization:weaning o2 Time Spent With Patient Time: Total time managing care of this patient today ____ minutes. Quality Stroke Does the patient have a stroke diagnosis?: No VTE Prior VTE?: No VTE Risk Level:: Medical - moderate - high VTE Device Contraindication: Treatment Not Indicated VTE Drug Contraindication: N/A - Med Ordered
[2022-05-30] MEDS: Enoxaparin Sodium 40 MG/0.4 ML SYRINGE SUBCUT (13:59)
[2022-05-31] VITALS (8 sets, daily range): BP systolic 123–142; BP diastolic 64–70; PULSE 80–99; RESP 12–18; TEMP 36.5–36.9; O2SAT 91–100
[2022-05-31] MEDS: Oseltamivir Phosphate 30 MG CAPSULE PO ×2 (03:07→13:45)
[2022-05-31] MEDS: methylPREDNISolone Sod Succ 40 MG/ML VIAL IVPUSH ×2 (03:07→13:45)
[2022-05-31 07:15] LABS: Hematocrit 29.6 % (37.0-47.0); Hemoglobin 9.8 g/dl (12.0-16.0); Mean Corpuscular HGB Conc 33.1 g/dl (31.0-35.0); Mean Corpuscular Hemoglobin 27.8 pg (27.0-33.0); Mean Corpuscular Volume 84.1 fL (80.0-98.0); Mean Platelet Volume 11.6 fL (9.4-12.3); Platelet Count 319 X10*3/uL (160-400); Red Blood Count 3.52 X10*6/uL (4.20-5.50); Red Cell Distribution Width 17.3 % (11.0-16.0); White Blood Count 13.2 X10*3/uL (4.8-10.8)
[2022-05-31] MEDS: Multivitamin TABLET 1 TAB PO (07:27)
[2022-05-31] MEDS: 0.9 % Sodium Chloride Flush 3 ML SYRINGE IVFLUSH ×3 (07:27→20:46)
[2022-05-31 08:09] LABS: Alanine Aminotransferase 107 U/L (0-31); Albumin Level 3.2 g/dL (3.5-5.0); Alkaline Phosphatase 54 U/L (39-117); Anion Gap 12 (12-20); Aspartate Amino Transferase 144 U/L (5-31); Bilirubin Direct < 0.2 mg/dL (0.0-0.5); Bilirubin Total 0.3 mg/dL (0.0-1.0); Blood Urea Nitrogen 14 mg/dL (9-16); Calcium 8.4 mg/dL (8.4-10.2); Carbon Dioxide 30 mmol/L (22-29); Chloride 98 mmol/L (96-108); Estimated Glomerular Filt Rate > 60; Glucose Fasting 140 mg/dL (60-99); Potassium 4.3 mmol/L (3.3-5.1); Sodium 136 mmol/L (135-145); Total Protein 6.4 g/dL (6.5-8.0)
--- NOTE | 2022-05-31 10:15 | P.PNIM_ITS ---
Subjective Subjective Date of Service: 05/31/22 Interval History: cc: sob interval history:improving Physical Exam Vital Signs: Vital Signs: Last Vital Signs Temp 97.8 F 05/31/22 08:00 Pulse 84 05/31/22 08:00 Resp 18 05/31/22 08:00 BP 136/68 05/31/22 08:00 Pulse Ox 100 05/31/22 08:00 O2 Del Method 05/31/22 08:00 O2 Flow Rate 1.5 05/31/22 08:00 BMI result Body Mass Index 24.5 General: AO X 3, no acute distress Resp: wheezsing bilateral, no accessory muscles used CVS: S1,S2,RRR GI: soft, non tender, non distended Neuro: motor grossly intact, alert Psych: appropriate affect, appropriate insight Objective Data Active Medications Acetaminophen (Acetaminophen 325 Mg Tablet) 650 mg PO Q6H PRN PRN Reason: Pain, Mild (Pain Scale 1-3) Azithromycin (Azithromycin 500 Mg Tablet) 500 mg PO Q24H [facility] Benzonatate (Benzonatate 100 Mg Capsule) 100 mg PO TID PRN PRN Reason: Cough Albuterol Sulfate 2.5 mg/ (Ipratropium [place] 0.5 mg) 0 mg INHALE RQ4H WHILE AWAKE [facility] Last Admin: 05/31/22 07:57 Dose: 2.5 each Documented By: PARIS Docusate Sodium (Docusate Sodium 100 Mg Capsule) 100 mg PO DAILY PRN PRN Reason: Constipation Enoxaparin Sodium (Enoxaparin Sodium 40 Mg/0.4 Ml Syringe) 40 mg SUBCUT Q24H [facility] Last Admin: 05/30/22 13:59 Dose: 40 mg Documented By: KIP Methylprednisolone Sodium Succinate (Methylprednisolone Sod Succ 40 Mg/Ml Vial) 40 mg IVPUSH Q12H [facility] Last Admin: 05/31/22 03:07 Dose: 40 mg Documented By: MONIKA Multivitamins/Vitamin C (Multivitamin Tablet) 1 tab PO DAILY [facility] Last Admin: 05/31/22 07:27 Dose: 1 tab Documented By: KIP Ondansetron HCl (Ondansetron Hcl 4 Mg/2 Ml Vial) 4 mg IVPUSH Q8H PRN PRN Reason: Nausea and Vomiting Oseltamivir Phosphate (Oseltamivir Phosphate 30 Mg Capsule) 30 mg PO Q12H [facility] Last Admin: 05/31/22 03:07 Dose: 30 mg Documented By: MONIKA Pharmacy Consult (Consult Rx Perform Med Rec) 1 each MISCELLANE ONCE PRN PRN Reason: Consult order Sodium Chloride (0.9 % Sodium Chloride Flush 3 Ml Syringe) 3 ml IVFLUSH QSHIFT [facility] Last Admin: 05/31/22 07:27 Dose: 3 ml Documented By: KIP Labs CBC & Chem 7: 05/31/22 07:00 05/31/22 07:00 Labs: Laboratory Results - last 24 hr 05/31/22 05/31/22 07:00 07:00 MCV 84.1 MCH 27.8 MCHC 33.1 RDW 17.3 H Plt Count 319 D MPV 11.6 Absolute Nucleated RBC 0.000 Nucleated RBC % (auto) 0.0 Anion Gap 12 Estim Creat Clear Calc 71.0 Estimated GFR > 60 Fasting Glucose 140 H Calcium 8.4 Total Bilirubin 0.3 Direct Bilirubin < 0.2 AST 144 H ALT 107 H Alkaline Phosphatase 54 Total Protein 6.4 L Albumin 3.2 L Microbiology Microbiology Results: Microbiology 05/29/22 11:07 Blood Culture - Preliminary Blood - Venous No growth after 24 hours. 05/29/22 11:07 Blood Culture - Preliminary Blood - Venous No growth after 24 hours. Assessment and Plan (1) Pneumonia: Status: Acute Plan 71-year-old female with PMH significant only for smoking a pack of cigarettes a day and drinking a beer a day who presents to the ED with with 3-4 days of worsening shortness of breath with exertion and nonproductive cough. Tested positive for Influenza A.? acute Hypoxic respiratory failure in setting of influenza a infection and likely copd with acute decompensation Tamiflu 30 mg b.i.d. 3/5 days, renally dosed DuoNebs Q 4 while awake Solu-Medrol 40 mg b.i.d. Benzonatate t.i.d. p.r.n. for cough azithro wean o2 as tolerated Viral Sepsis No evidence of bacterial infection Tachypnea, tachycardia, elevated lactate likely all due to viral infection Bacteruria no symptoms, will dc rocephin transaminitis with elevated INR ?liver disease check US, viral hepatitis panel Full Code DVT Prophylaxis: Lovenox reason for continued hospitalization:weaning o2 Time Spent With Patient Time: Total time managing care of this patient today ____ minutes. Quality Stroke Does the patient have a stroke diagnosis?: No VTE Prior VTE?: No VTE Risk Level:: Medical - moderate - high VTE Device Contraindication: Treatment Not Indicated VTE Drug Contraindication: N/A - Med Ordered
[2022-05-31] MEDS: Azithromycin 500 MG TABLET PO (10:25)
[2022-05-31] MEDS: Enoxaparin Sodium 40 MG/0.4 ML SYRINGE SUBCUT (13:45)
[2022-06-01] VITALS (7 sets, daily range): BP systolic 124–135; BP diastolic 60–74; PULSE 81–96; RESP 16–18; TEMP 36.1–37.1; O2SAT 84–100
[2022-06-01] MEDS: methylPREDNISolone Sod Succ 40 MG/ML VIAL IVPUSH ×2 (02:53→15:33)
[2022-06-01] MEDS: Oseltamivir Phosphate 30 MG CAPSULE PO ×2 (02:53→15:33)
[2022-06-01] MEDS: Benzonatate 100 MG CAPSULE PO (02:53)
[2022-06-01 06:34] LABS: Hematocrit 30.4 % (37.0-47.0); Mean Corpuscular HGB Conc 32.9 g/dl (31.0-35.0); Mean Corpuscular Hemoglobin 27.9 pg (27.0-33.0); Mean Corpuscular Volume 84.9 fL (80.0-98.0); Mean Platelet Volume 11.2 fL (9.4-12.3); Platelet Count 398 X10*3/uL (160-400); Red Blood Count 3.58 X10*6/uL (4.20-5.50); Red Cell Distribution Width 17.6 % (11.0-16.0); White Blood Count 10.3 X10*3/uL (4.8-10.8)
[2022-06-01 06:57] LABS: Alanine Aminotransferase 86 U/L (0-31); Albumin Level 3.2 g/dL (3.5-5.0); Alkaline Phosphatase 53 U/L (39-117); Anion Gap 14 (12-20); Aspartate Amino Transferase 54 U/L (5-31); Bilirubin Direct < 0.2 mg/dL (0.0-0.5); Bilirubin Total 0.3 mg/dL (0.0-1.0); Blood Urea Nitrogen 11 mg/dL (9-16); Calcium 8.4 mg/dL (8.4-10.2); Carbon Dioxide 28 mmol/L (22-29); Chloride 101 mmol/L (96-108); Estimated Glomerular Filt Rate > 60; Glucose Fasting 115 mg/dL (60-99); Potassium 4.5 mmol/L (3.3-5.1); Sodium 138 mmol/L (135-145); Total Protein 6.3 g/dL (6.5-8.0)
[2022-06-01 09:09] LABS: HBS Num1 0.14 mIU/mL (0-7.99); HBc Num1 0.06 S/CO (0.00-0.79); HBsAGNum1 0.33 S/CO (0.00-0.99); Hepatitis B Core Antibody Nonreactive (Nonreactive); Hepatitis B Surface Antigen Negative (Negative); ~HepC Num1 0.16 S/CO (0.00-0.79); ~Hepatitis B Surface Antibody NONREACTIVE (Nonreactive); ~Hepatitis C Antibody Nonreactive (Nonreactive)
[2022-06-01] MEDS: Azithromycin 500 MG TABLET PO (09:14)
[2022-06-01] MEDS: Multivitamin TABLET 1 TAB PO (09:14)
[2022-06-01] MEDS: 0.9 % Sodium Chloride Flush 3 ML SYRINGE IVFLUSH ×2 (09:15→15:33)
--- NOTE | 2022-06-01 09:57 | P.PNIM_ITS ---
Subjective Subjective Date of Service: 06/01/22 Interval History: cc: sob interval history:improving Physical Exam Vital Signs: Vital Signs: Last Vital Signs Temp 97.8 F 06/01/22 03:52 Pulse 96 06/01/22 09:12 Resp 18 06/01/22 09:12 BP 132/60 06/01/22 03:52 Pulse Ox 100 06/01/22 03:52 O2 Del Method 06/01/22 03:52 O2 Flow Rate 1.5 06/01/22 03:52 BMI result Body Mass Index 24.5 General: AO X 3, no acute distress Resp: wheezsing bilateral, no accessory muscles used CVS: S1,S2,RRR GI: soft, non tender, non distended Neuro: motor grossly intact, alert Psych: appropriate affect, appropriate insight Objective Data Active Medications Acetaminophen (Acetaminophen 325 Mg Tablet) 650 mg PO Q6H PRN PRN Reason: Pain, Mild (Pain Scale 1-3) Azithromycin (Azithromycin 500 Mg Tablet) 500 mg PO Q24H FORMERLY [facility], [facility]1983 Last Admin: 06/01/22 09:14 Dose: 500 mg Documented By: MICHELLE Benzonatate (Benzonatate 100 Mg Capsule) 100 mg PO TID PRN PRN Reason: Cough Last Admin: 06/01/22 02:53 Dose: 100 mg Documented By: MONIKA Albuterol Sulfate 2.5 mg/ (Ipratropium [place] 0.5 mg) 0 mg INHALE RQ4H WHILE AWAKE FORMERLY [facility], 1928–1983 Last Admin: 06/01/22 09:10 Dose: 0.5 each Documented By: SEAMUS Docusate Sodium (Docusate Sodium 100 Mg Capsule) 100 mg PO DAILY PRN PRN Reason: Constipation Enoxaparin Sodium (Enoxaparin Sodium 40 Mg/0.4 Ml Syringe) 40 mg SUBCUT Q24H FORMERLY [facility], [facility]1983 Last Admin: 05/31/22 13:45 Dose: 40 mg Documented By: DABAvelina Methylprednisolone Sodium Succinate (Methylprednisolone Sod Succ 40 Mg/Ml Vial) 40 mg IVPUSH Q12H FOR[facility]LY [facility], [facility]–1983 Last Admin: 06/01/22 02:53 Dose: 40 mg Documented By: MONIKA Multivitamins/Vitamin C (Multivitamin Tablet) 1 tab PO DAILY FORMERLY [facility], [facility]1983 Last Admin: 06/01/22 09:14 Dose: 1 tab Documented By: MICHELLE Ondansetron HCl (Ondansetron Hcl 4 Mg/2 Ml Vial) 4 mg IVPUSH Q8H PRN PRN Reason: Nausea and Vomiting Oseltamivir Phosphate (Oseltamivir Phosphate 30 Mg Capsule) 30 mg PO Q12H FOR[facility], [facility] Last Admin: 06/01/22 02:53 Dose: 30 mg Documented By: MONIKA Pharmacy Consult (Consult Rx Perform Med Rec) 1 each MISCELLANE ONCE PRN PRN Reason: Consult order Sodium Chloride (0.9 % Sodium Chloride Flush 3 Ml Syringe) 3 ml IVFLUSH QSHIFT FOR[facility]LY [facility], [facility] Last Admin: 06/01/22 09:15 Dose: 3 ml Documented By: MICHELLE Labs 06/01/22 05:54 06/01/22 05:54 Labs: Laboratory Results - last 24 hr 06/01/22 06/01/22 05:54 05:54 MCV 84.9 MCH 27.9 MCHC 32.9 RDW 17.6 H Plt Count 398 MPV 11.2 Absolute Nucleated RBC 0.000 Nucleated RBC % (auto) 0.0 Anion Gap 14 Estim Creat Clear Calc 70.0 Estimated GFR > 60 Fasting Glucose 115 H Calcium 8.4 Total Bilirubin 0.3 Direct Bilirubin < 0.2 AST 54 H ALT 86 H Alkaline Phosphatase 53 Total Protein 6.3 L Albumin 3.2 L Microbiology Microbiology Results: Microbiology 05/29/22 11:07 Blood Culture - Preliminary Blood - Venous No growth after 48 hours. 05/29/22 11:07 Blood Culture - Preliminary Blood - Venous No growth after 48 hours. Assessment and Plan (1) Pneumonia: Status: Acute Plan 71-year-old female with PMH significant only for smoking a pack of cigarettes a day and drinking a beer a day who presents to the ED with with 3-4 days of wo rsening shortness of breath with exertion and nonproductive cough. Tested positive for Influenza A.? acute Hypoxic respiratory failure in setting of influenza a infection and likely copd with acute decompensation Tamiflu 30 mg b.i.d. 4/5 days, renally dosed DuoNebs Q 4 while awake Solu-Medrol 40 mg b.i.d. Benzonatate t.i.d. p.r.n. for cough azithro wean o2 as tolerated - not requiring high levels of o2, but desaturates significantly on room air Viral Sepsis No evidence of bacterial infection Tachypnea, tachycardia, elevated lactate likely all due to viral infection Bacteruria no symptoms, dced rocephin transaminitis with elevated INR steatohepatitis possibly etoh, follow up viral studies liver lesion outpatient mri Full Code DVT Prophylaxis: Lovenox reason for continued hospitalization:weaning o2 Time Spent With Patient Time: Total time managing care of this patient today ____ minutes. Quality Stroke Does the patient have a stroke diagnosis?: No VTE Prior VTE?: No VTE Risk Level:: Medical - moderate - high VTE Device Contraindication: Treatment Not Indicated VTE Drug Contraindication: N/A - Med Ordered
[2022-06-01] MEDS: Enoxaparin Sodium 40 MG/0.4 ML SYRINGE SUBCUT (15:33)
[2022-06-02] MEDS: Oseltamivir Phosphate 30 MG CAPSULE PO (02:30)
[2022-06-02] MEDS: methylPREDNISolone Sod Succ 40 MG/ML VIAL IVPUSH (02:30)
[2022-06-02] MEDS: 0.9 % Sodium Chloride Flush 3 ML SYRINGE IVFLUSH ×2 (02:30→10:36)
[2022-06-02 04:00] VITALS: BP 137/70; PULSE 72; RESP 16; TEMP 36.2; O2SAT 98
[2022-06-02 08:00] VITALS: BP 130/60; PULSE 80; RESP 17; TEMP 36; O2SAT 95
[2022-06-02 09:14] VITALS: PULSE 72; RESP 16; O2SAT 93
[2022-06-02] MEDS: Azithromycin 500 MG TABLET PO (10:36)
[2022-06-02] MEDS: Multivitamin TABLET 1 TAB PO (10:37)
--- NOTE | 2022-06-02 11:08 | P.DS_ITS ---
DS: Providers Provider Date of Service: 06/02/22 Date of admission: 05/29/22 14:26 Primary care physician: Unknown Physician DS: Diagnosis Discharge Diagnosis (1) Pneumonia: Status: Acute DS: Summary Hospital Course Hospital Course: from initial hpi: 71-year-old female with PMH significant only for smoking a pack of cigarettes a day and drinking a beer a day who presents to the ED with with 3-4 days of worsening shortness of breath with exertion and nonproductive cough.? Presents today due to feeling extremely weak, having difficulty breathing, and having prolonged bouts of coughing this morning.? Patient denies fever, chills, nausea, vomiting.? No chest pain/pressure, palpitations.? No abdominal or flank pain.? Denies dysuria or urinary frequency.? Patient denies a history of a bleeding disorder and denies any incidence of easy bruising or bleeding.? Denies a history of epistaxis.? Patient denies any confusion. In the ED patient was found to be tachycardic, tachypneic, and hypoxic at O2 sat of 84 on room air. Labs were significant for no leukocytosis, PT of 17.8 and INR of 1.5, lactic acid of 2.3, mildly elevated troponin of 25.8, C-reactive protein of 26.8.? Urine positive for UTI.? Patient is positive for influenza A. CXR showed patchy opacities in both lung bases likely developing infiltrates and/or atelectasis.? EKG showed sinus tach. Pt was treated with azithromycin, ceftriaxone, and albuterol. Pt will be admitted to the hospital for treatment and evaluation of hypoxia in the setting of influenza infection. hospital course: Patient was admitted for Viral sepsis and acute hypoxic respiratory failure in the setting of influenza a infection unlikely COPD with acute decompensation. She was treated with Tamiflu, steroids, bronchodilators, azithromycin. Patient's symptoms resolved. She was noted to still be hypoxic on room air, likely component of chronic hypoxia due to undiagnosed COPD. Patient will be discharged on home oxygen. patient was also noted to have transaminitis, ultrasound of abdomen was consistent with steatohepatitis, possibly due to alcohol, viral studies were negative. She is recommended to follow up outpatient for MRI of the liver to further evaluate lesion seen on CT scan. Patient is feeling better and will be discharged home on prednisone and azithromycin. Time Spent with Patient Time attestation: Total time managing care of this patient today ____ minutes. Discharge coordination time: Greater than 30 minutes Quality: Safe Use of Opioids Does Pt have an Active Cancer Diagnosis on the Problem List?: No Quality: Stroke Does the patient have a stroke diagnosis?: No Physical Exam Vital Signs: Vital Signs: Last Vital Signs Temp 96.8 F 06/02/22 08:00 Pulse 72 06/02/22 09:14 Resp 16 06/02/22 09:14 BP 130/60 06/02/22 08:00 Pulse Ox 95 06/02/22 08:00 O2 Del Method 06/02/22 08:00 O2 Flow Rate 2.0 06/02/22 08:00 BMI result Body Mass Index 24.5 General: AO X 3, no acute distress Resp: CTA bilateral, no accessory muscles used CVS: S1,S2,RRR GI: soft, non tender, non distended Neuro: motor grossly intact, alert Psych: appropriate affect, appropriate insight DS: Data Data Completed and Pending Labs on day of discharge: Preliminary micro results at discharge 05/29/22 11:07 Blood Culture - Preliminary Blood - Venous No growth after 48 hours. 05/29/22 11:07 Blood Culture - Preliminary Blood - Venous No growth after 48 hours. Discharge Plan Discharge Anticipated Discharge Date/Time: 06/02/22 11:05 Patient Disposition: Home, Self-Care Discharge Diagnosis: flu, copd, hepatic steatosis Referrals: Physician,Unknown J [Primary Care Provider] - 1 Week Discharge Medications: New azithromycin 500 mg Tablet 500 mg PO Q24H Qty: 5 0RF prednisone 20 mg tablet 40 mg PO DAILY Qty: 6 0RF Continued multivitamin Tablet 1 tab PO DAILY Discharge Orders: Discharge Order (Routine); Ordered 06/02/22 Ordered By: Mohan Gonzales Diet: Advance to usual diet Activity on Discharge: As tolerated Stand Alone Forms: Patient Portal Discharge page Other Ambulatory Orders: MR abdomen wo/w con (Routine) Timeframe: 1 Week Facility: [facility] - Location: MRI Ordered By: Mohan Gonzales Care Plan Goals: recovery Health Concerns: copd, flu, hypoxia Plan of Treatment: predniosne, azithro, home o2, mri, avoid etoh Assessment: see above
--- NOTE | 2022-06-02 11:40 | MHC.CM.PN ---
PT CLEARED TO DC HOME TODAY WITH NO SERVICES FAMILY TO TRANSPORT
[2022-06-02 14:01] VITALS: PULSE 80; PULSE 90; PULSE 95; O2SAT 86; O2SAT 87; O2SAT 90; O2SAT 96
[2022-06-02 14:04] VITALS: PULSE 95; RESP 18; O2SAT 95
[2022-06-02 15:17] VITALS: BP 135/65; PULSE 89; RESP 16; TEMP 36.2; O2SAT 95
== END 2022-06-02 17:20 | disposition home or self-care (01) | DRG 720 ==
LOC: HO.ED 11:50 → HO.EDOVER 14:51 → HO.S3 05-30 10:40
PROVIDERS: Admitting Provider Student in an Organized Health Care Education/Training Program; Emergency Provider Emergency Medicine; Visit Provider Internal Medicine
DX: A41.89 Other specified sepsis (principal); J96.01 Acute respiratory failure with hypoxia; J10.1 Influenza due to other identified influenza virus with other respiratory manifestations; N39.0 Urinary tract infection, site not specified; J44.1 Chronic obstructive pulmonary disease with (acute) exacerbation; K70.0 Alcoholic fatty liver; F17.210 Nicotine dependence, cigarettes, uncomplicated; Z20.822 Contact with and (suspected) exposure to COVID-19; Z71.6 Tobacco abuse counseling; Z79.899 Other long term (current) drug therapy
CPT/HCPCS: 0241U; 36415; 71045; 76700; 80048; 80076; 81001; 82728; 82803; 83605; 83615; 83735; 83880; 84145; 84484; 85025; 85027; 85610; 86140; 86704; 86706; 86803; 87040; 87340; 93005; 94640; 99285; J0456; J0696; J1650; J2920

== ENCOUNTER 2022-06-08 12:01 | Outpatient (REF) | payer OTHER, SELFPAY ==
[2022-06-08 13:38] LABS: MANUAL DIFF FLAG NO
[2022-06-08 13:41] LABS: Appearance Urine Clear; Color Urine Yellow; Glucose Urine UA Negative (Negative); Leukocyte Esterase Urine Negative (Negative); Nitrite Urine Negative (Negative); PH 7.5 (5.0-9.0); Specific Gravity - Urine <= 1.005 (1.005-1.025); Urine Blood Negative (Negative); Urine Ketones Negative (Negative); Urine Protein Negative (Neg-Trace)
[2022-06-08 13:43] LABS: Basophils Percent Auto 0.4 % (0-2); Eosinophils Absolute Auto 0.1 X10*3/uL (0.0-0.4); Eosinophils Percent Auto 1.1 % (0-4); Hematocrit 33.8 % (37.0-47.0); Hemoglobin 10.5 g/dl (12.0-16.0); Imm Gran Abs Auto 0.04 X10*3/uL (0.00-0.03); Imm Gran Pct Auto 0.7 % (0.0-0.4); Lymphocytes Absolute Auto 1.7 X10*3/uL (1.2-4.9); Lymphocytes Percent Auto 29.6 % (20-40); Mean Corpuscular HGB Conc 31.1 g/dl (31.0-35.0); Mean Corpuscular Hemoglobin 27.3 pg (27.0-33.0); Mean Corpuscular Volume 87.8 fL (80.0-98.0); Mean Platelet Volume 9.8 fL (9.4-12.3); Monocytes Absolute Auto 0.3 X10*3/uL (0.1-1.2); Neutrophils Absolute Auto 3.5 x10*3/uL (2.0-8.3); Neutrophils Percent Auto 62.2 % (45-73); Platelet Count 461 X10*3/uL (160-400); Red Blood Count 3.85 X10*6/uL (4.20-5.50); White Blood Count 5.7 X10*3/uL (4.8-10.8)
[2022-06-08 13:54] LABS: Alanine Aminotransferase 21 U/L (0-31); Albumin Level 3.3 g/dL (3.5-5.0); Alkaline Phosphatase 58 U/L (39-117); Anion Gap 11 (12-20); Aspartate Amino Transferase 15 U/L (5-31); Bilirubin Total 0.4 mg/dL (0.0-1.0); Blood Urea Nitrogen 7 mg/dL (9-16); Calcium 8.6 mg/dL (8.4-10.2); Carbon Dioxide 27 mmol/L (22-29); Chloride 108 mmol/L (96-108); Estimated Glomerular Filt Rate > 60; Glucose Random 82 mg/dL (60-115); Potassium 4.7 mmol/L (3.3-5.1); Sodium 141 mmol/L (135-145); Total Protein 6.1 g/dL (6.5-8.0)
[2022-06-08 13:55] LABS: Estimated Average Glucose 114 mg/dL; Hemoglobin A1c % 5.6 %
[2022-06-08 14:28] LABS: Creatinine Urine 17.21 mg/dL; Microalbumin Urine < 5.0 mg/L
== END 2022-06-08 12:02 | disposition home or self-care (01) ==
LOC: HO.10HDL 12:01
PROVIDERS: Visit Provider Internal Medicine
DX: J44.9 Chronic obstructive pulmonary disease, unspecified (principal); R73.03 Prediabetes; J18.9 Pneumonia, unspecified organism; R31.9 Hematuria, unspecified
CPT/HCPCS: 36415; 80053; 81003; 82043; 83036; 85025

== ENCOUNTER 2022-09-14 17:05 | Outpatient (REF) | payer OTHER, SELFPAY ==
[2022-09-14 17:15] LABS: MANUAL DIFF FLAG NO
[2022-09-14 18:16] LABS: Basophils Percent Auto 0.7 % (0-2); Eosinophils Absolute Auto 0.2 X10*3/uL (0.0-0.4); Eosinophils Percent Auto 3.3 % (0-4); Hematocrit 33.3 % (37.0-47.0); Hemoglobin 10.6 g/dl (12.0-16.0); Lymphocytes Absolute Auto 1.8 X10*3/uL (1.2-4.9); Mean Corpuscular HGB Conc 31.8 g/dl (31.0-35.0); Mean Corpuscular Hemoglobin 27.7 pg (27.0-33.0); Mean Corpuscular Volume 86.9 fL (80.0-98.0); Mean Platelet Volume 10.7 fL (9.4-12.3); Monocytes Absolute Auto 0.4 X10*3/uL (0.1-1.2); Monocytes Percent Auto 9.1 % (2-11); Neutrophils Absolute Auto 2.1 x10*3/uL (2.0-8.3); Neutrophils Percent Auto 45.9 % (45-73); Platelet Count 256 X10*3/uL (160-400); Red Blood Count 3.83 X10*6/uL (4.20-5.50); White Blood Count 4.5 X10*3/uL (4.8-10.8)
[2022-09-14 18:28] LABS: Anion Gap 13 (12-20); Blood Urea Nitrogen 9 mg/dL (9-16); Calcium 9.2 mg/dL (8.4-10.2); Carbon Dioxide 26 mmol/L (22-29); Chloride 107 mmol/L (96-108); Estimated Glomerular Filt Rate > 60; Glucose Random 83 mg/dL (60-115); Iron 42 mcg/dL (30-160); Percent Iron Saturation 11 % (15-50); Potassium 4.2 mmol/L (3.3-5.1); Sodium 142 mmol/L (135-145); Total Iron Binding Capacity 374 mcg/dL (228-428); Unsaturated Iron Binding 332 ug/dL
== END 2022-09-14 17:06 | disposition home or self-care (01) ==
LOC: HO.LAB 17:05
PROVIDERS: PCP Internal Medicine; Visit Provider Internal Medicine
DX: J44.9 Chronic obstructive pulmonary disease, unspecified (principal); D64.9 Anemia, unspecified
CPT/HCPCS: 36415; 80048; 83540; 85025

== ENCOUNTER 2023-04-30 13:51 | Outpatient (REF) | payer OTHER, SELFPAY ==
--- NOTE | ~2023-04-30 | XR_ITS ---
EXAMINATION: XR WRIST, LEFT CLINICAL INFORMATION: Left wrist pain COMPARISON: None available. TECHNIQUE: Four views of the left wrist. FINDINGS: No acute visible fracture or dislocation. Mild multi joint arthritic changes. Positive ulnar variance. Joint spaces and alignment are otherwise maintained. Soft tissues are unremarkable. XR/XR wrist LT min 3V IMPRESSION: 1. No acute visible fracture or dislocation. 2. Mild multi joint arthritic changes. 3. Positive ulnar variance.
[2023-04-30 14:02] LABS: MANUAL DIFF FLAG NO
[2023-04-30 14:15] LABS: Basophils Percent Auto 0.7 % (0-2); Eosinophils Absolute Auto 0.1 X10*3/uL (0.0-0.4); Eosinophils Percent Auto 2.6 % (0-4); Hematocrit 36.8 % (37.0-47.0); Hemoglobin 11.4 g/dl (12.0-16.0); Imm Gran Abs Auto 0.01 X10*3/uL (0.00-0.03); Imm Gran Pct Auto 0.2 % (0.0-0.4); Lymphocytes Absolute Auto 1.9 X10*3/uL (1.2-4.9); Lymphocytes Percent Auto 34.3 % (20-40); Mean Platelet Volume 10.6 fL (9.4-12.3); Monocytes Absolute Auto 0.5 X10*3/uL (0.1-1.2); Monocytes Percent Auto 8.2 % (2-11); Platelet Count 260 X10*3/uL (160-400); Red Blood Count 4.23 X10*6/uL (4.20-5.50); Red Cell Distribution Width 16.5 % (11.0-16.0); White Blood Count 5.5 X10*3/uL (4.8-10.8)
[2023-04-30 14:50] LABS: Anion Gap 12 (12-20); Blood Urea Nitrogen 7 mg/dL (9-16); Calcium 9.5 mg/dL (8.4-10.2); Carbon Dioxide 28 mmol/L (22-29); Chloride 104 mmol/L (96-108); Cholesterol 193 mg/dL (<200); Estimated Glomerular Filt Rate > 60; Glucose Random 93 mg/dL (60-115); Iron 58 mcg/dL (30-160); Percent Iron Saturation 15 % (15-50); Potassium 4.4 mmol/L (3.3-5.1); Sodium 140 mmol/L (135-145); Total Iron Binding Capacity 375 mcg/dL (228-428); Unsaturated Iron Binding 317 ug/dL
== END 2023-04-30 13:52 | disposition home or self-care (01) ==
LOC: HO.LAB 13:51
PROVIDERS: PCP Internal Medicine; Visit Provider Internal Medicine
DX: M25.532 Pain in left wrist (principal); D64.9 Anemia, unspecified; J44.9 Chronic obstructive pulmonary disease, unspecified; Z82.49 Family history of ischemic heart disease and other diseases of the circulatory system
CPT/HCPCS: 36415; 73110; 80048; 82465; 83540; 85025

== ENCOUNTER 2023-09-20 15:42 | Outpatient (REF) | payer OTHER, SELFPAY ==
[2023-09-20 19:00] LABS: Alanine Aminotransferase 12 U/L (0-31); Albumin Level 4.1 g/dL (3.5-5.0); Alkaline Phosphatase 86 U/L (39-117); Anion Gap 11 (12-20); Aspartate Amino Transferase 16 U/L (5-31); Bilirubin Total 0.2 mg/dL (0.0-1.0); Blood Urea Nitrogen 8 mg/dL (9-16); Carbon Dioxide 29 mmol/L (22-29); Chloride 105 mmol/L (96-108); Cholesterol 173 mg/dL (<200); Estimated Glomerular Filt Rate 58; Glucose Random 83 mg/dL (60-115); Iron 24 mcg/dL (30-160); Percent Iron Saturation 6 % (15-50); Potassium 4.2 mmol/L (3.3-5.1); Sodium 141 mmol/L (135-145); Total Iron Binding Capacity 379 mcg/dL (228-428); Total Protein 7.2 g/dL (6.5-8.0); Unsaturated Iron Binding 355 ug/dL
[2023-09-20 22:18] LABS: Vitamin B12 230 pg/mL (200-900)
== END 2023-09-20 15:43 | disposition home or self-care (01) ==
LOC: HO.LAB 15:42
PROVIDERS: PCP Internal Medicine; Visit Provider Internal Medicine
DX: J44.9 Chronic obstructive pulmonary disease, unspecified (principal); D64.9 Anemia, unspecified; K76.0 Fatty (change of) liver, not elsewhere classified; Z82.49 Family history of ischemic heart disease and other diseases of the circulatory system
CPT/HCPCS: 36415; 80053; 82465; 82607; 83540

== ENCOUNTER 2023-10-11 13:50 | Outpatient (REF) | payer OTHER, SELFPAY ==
--- NOTE | ~2023-10-11 | MM_ITS ---
EXAMINATION: MM SCREENING DIGITAL BREAST TOMOSYNTHESIS, BILATERAL CLINICAL INFORMATION: Screening. Asymptomatic. COMPARISON: Mammography: This study is compared with prior exams dating back to 2019. TECHNIQUE: Digital breast tomosynthesis is performed in both the craniocaudal and mediolateral oblique views along with computer-aided detection (CAD). Synthesized 2D images are generated from the tomosynthesis. FINDINGS: There are scattered areas of fibroglandular density (ACR BI-RADS breast composition Category b). There are no significant masses, abnormal calcifications, or other abnormalities. There are unchanged, grouped, benign calcifications and a biopsy tissue marker in the retroareolar region of the left breast. MM/MM tomosynthesis screening BI IMPRESSION: No mammographic evidence of malignancy. ASSESSMENT: BI-RADS BI-RADS 2 - Benign Findings RECOMMENDATION: Routine annual mammography screening. 1 year F/U This examination should not preclude the clinical evaluation of a suspicious palpable abnormality. This patient's information was entered into a reminder system with a target due date for their next mammogram.
--- NOTE | ~2023-10-11 | MM_ITS ---
EXAMINATION: BONE DENSITOMETRY CLINICAL INDICATION: Asymptomatic menopausal state. COMPARISON: This is the patient's baseline examination. TECHNIQUE: Using a [employer] ([employer]) DXA System (software version: 13.1) manufactured by [employer], dual-energy x-ray absorptiometry was performed of the lumbar spine and left hip. The images are of good technical quality. Summary results are attached. FINDINGS: LEFT FEMUR, NECK: BMD 0.798 g/cm2, Z-score -1.0, T-score -1.7, osteopenia. LEFT FEMUR, TOTAL: BMD 0.813 g/cm2, Z-score -1.1, T-score -1.5, osteopenia. AP SPINE L1-L4: BMD 1.101 g/cm2, Z-score 0.1, T-score -0.7, normal. IDENTIFIED RISK FACTORS: Menopause. HISTORY OF FRACTURE: None listed. MEDICATIONS: Multivitamin. MM/XR DEXA axial skeleton IMPRESSION: 1. DIAGNOSIS: Osteopenia based on the lowest T-score value of -1.7 in the femoral neck applying World Health Organization criteria. 2. 10-YEAR FRACTURE RISK PREDICTION, FRAX: Major osteoporotic fracture (clinical spine, forearm, hip or shoulder) 5.3%. Hip fracture 1.1%. 3. Treatment Recommendations: NOF guidelines recommend consideration for treatment in postmenopausal women and men age 50 and older presenting with the following: -A hip or vertebral (clinical or morphometric) fracture. -T-score less than or equal to -2.5 at the femoral neck or spine after appropriate evaluation to exclude secondary causes. -Low bone mass at the hip or spine and a 10-year fracture probability by FRAX of greater than or equal to 3% for hip fracture or greater than or equal to 20% for major osteoporotic fracture based on the [place] adapted WHO algorithm. 4. Other Recommendations: All treatment decisions require clinical judgment and consideration of individual patient factors, including patient preferences, comorbidities, previous drug use, risk factors not captured in the FRAX model (e.g. frailty, falls, vitamin D deficiency, increased bone turnover, interval significant decline in bone density) and possible under or overestimation of fracture risk by FRAX. Additional medical evaluation for secondary cause of low bone mineral density may be appropriate. FUTURE SCAN RECOMMENDATION: People with diagnosed cases of osteoporosis or at high risk for fracture should have regular bone mineral density tests. For patients eligible for Medicare, routine testing is allowed once every 2 years. The testing frequency can be increased to one year for patients who have rapidly progressing disease, those who are receiving or discontinuing medical therapy to restore bone mass, or have additional risk factors.
== END 2023-10-11 13:51 | disposition home or self-care (01) ==
LOC: HO.MAMMO 13:50
PROVIDERS: PCP Internal Medicine; Visit Provider Internal Medicine
DX: Z12.31 Encounter for screening mammogram for malignant neoplasm of breast (principal); Z13.820 Encounter for screening for osteoporosis; Z78.0 Asymptomatic menopausal state
CPT/HCPCS: 77063; 77067; 77080

== ENCOUNTER → 2023-10-11 14:30 | Outpatient (BNV) | payer OTHER, SELFPAY | PROVIDERS: PCP Internal Medicine; Visit Provider Radiology Diagnostic Radiology | DX: Z12.31 Encounter for screening mammogram for malignant neoplasm of breast (principal) | CPT/HCPCS: 77063; 77067 ==

== ENCOUNTER 2024-04-30 09:45 | Outpatient (REF) | payer OTHER, SELFPAY ==
[2024-04-30 10:06] LABS: MANUAL DIFF FLAG NO
[2024-04-30 10:51] LABS: Basophils Percent Auto 0.7 % (0-2); Eosinophils Absolute Auto 0.1 X10*3/uL (0.0-0.4); Eosinophils Percent Auto 1.6 % (0-4); Hematocrit 31.1 % (37.0-47.0); Hemoglobin 9.2 g/dl (12.0-16.0); Imm Gran Abs Auto 0.01 X10*3/uL (0.00-0.03); Imm Gran Pct Auto 0.2 % (0.0-0.4); Lymphocytes Absolute Auto 1.1 X10*3/uL (1.2-4.9); Lymphocytes Percent Auto 25.6 % (20-40); Mean Corpuscular HGB Conc 29.6 g/dl (31.0-35.0); Mean Corpuscular Hemoglobin 22.8 pg (27.0-33.0); Mean Corpuscular Volume 77.2 fL (80.0-98.0); Mean Platelet Volume 10.5 fL (9.4-12.3); Monocytes Absolute Auto 0.3 X10*3/uL (0.1-1.2); Monocytes Percent Auto 7.7 % (2-11); Neutrophils Absolute Auto 2.8 x10*3/uL (2.0-8.3); Neutrophils Percent Auto 64.2 % (45-73); Platelet Count 274 X10*3/uL (160-400); Red Blood Count 4.03 X10*6/uL (4.20-5.50); Red Cell Distribution Width 20.7 % (11.0-16.0); White Blood Count 4.4 X10*3/uL (4.8-10.8)
[2024-04-30 11:44] LABS: Alanine Aminotransferase 15 U/L (0-31); Albumin Level 4.1 g/dL (3.5-5.0); Alkaline Phosphatase 83 U/L (39-117); Anion Gap 9 (12-20); Aspartate Amino Transferase 21 U/L (5-31); Bilirubin Total 0.4 mg/dL (0.0-1.0); Blood Urea Nitrogen 6 mg/dL (9-16); Carbon Dioxide 28 mmol/L (22-29); Chloride 108 mmol/L (96-108); Estimated Glomerular Filt Rate > 60; Glucose Random 94 mg/dL (60-115); Potassium 4.1 mmol/L (3.3-5.1); Sodium 141 mmol/L (135-145); Total Protein 7.8 g/dL (6.5-8.0)
[2024-04-30 11:50] LABS: Vitamin D 25-OH Total 14.8 ng/mL (>30)
[2024-04-30 11:56] LABS: Vitamin B12 267 pg/mL (200-900)
--- OUTSIDE RECORDS SUMMARY | 2024-05-06 01:05 | XMS_ITS ---
Author Organization [facility] Address [address] [place] [address] Care Team Providers Care Software Implementation Specialist Name Role Phone Isaiah Hernandez MD Primary Care Provider Anya Juliana Veloz [phone] REASON FOR VISIT ppwk Encounters Encounter Location Date Provider Diagnosis [address] [address] 04/27/2024 Juliana Lundberg Plan Of Treatment Next Appt Details Provider Name:Juliana fuentes, 05/13/2024 09:30:00 AM, [address] [place], [address], Progress Notes * Tania HARRINGTONDOB:[birth year] (73 yo F)Acc No.[id number]:04/27/2024 Patient:?LEN Tania :1950???Age:73 Y???Sex:Female Address:[address] [place] [address] [address] , [place], [address] * true * Date:? Generated for Zurdo lynn/Fallon/eTransmitting on:?05/06/2024 01:05 AM EST
--- OUTSIDE RECORDS SUMMARY | 2024-05-06 01:05 | XMS_ITS | Patient Health Record ---
Author Organization [facility] Address [address] [place] [address] Care Team Providers Care Place Change Roof Bolter Name Role Phone Isaiah Hernandez MD Primary Care Provider Unavaila Juliana Veloz Unavailable [phone] Reason For Referral No Information Encounters Encounter Location Date Provider Diagnosis [facility] [address] [place] [address] 04/27/2024 Juliana Lundberg Plan Of Treatment Next Appt Details Provider Name:Juliana fuentes, 05/13/2024 09:30:00 AM, [address] [place], [address], Insurance Providers Payer Name Payer Address Payer Phone Subscriber Number Group Number Insured Name Patient Relationship to Insured Coverage Start Date Coverage End Date [employer] Benefits [address] [address] [place] [address] [id number] Tania Carrion Self - patient is the insured
== END 2024-04-30 09:46 | disposition home or self-care (01) ==
LOC: HO.LAB 09:45
PROVIDERS: PCP Internal Medicine; Visit Provider Internal Medicine
DX: D64.9 Anemia, unspecified (principal); E53.8 Deficiency of other specified B group vitamins; J44.9 Chronic obstructive pulmonary disease, unspecified; N18.9 Chronic kidney disease, unspecified; M85.80 Other specified disorders of bone density and structure, unspecified site
CPT/HCPCS: 36415; 80053; 82306; 82607; 85025

== ENCOUNTER → 2024-10-31 01:15 | Outpatient (BNV) | payer OTHER, SELFPAY | PROVIDERS: Visit Provider Radiology Diagnostic Radiology | DX: J98.4 Other disorders of lung (principal) | CPT/HCPCS: 71046 ==

== ENCOUNTER 2024-10-31 01:57 | Emergency (ER) | payer OTHER, SELFPAY ==
--- NOTE | ~2024-10-31 | XR_ITS ---
CLINICAL HISTORY: cough, pain 2 view chest x-ray. Comparison: None Findings: Lungs are mildly hyperinflated and there is hyperlucency in the upper lobes suggestive of emphysema. Lungs appear otherwise clear. Cardiomediastinal silhouette is within normal limits. IMPRESSION: 1. No acute cardiopulmonary abnormality. 2. Suspected emphysema. This document has been electronically signed by: Jamla Humphrey MD on 10/31/2024 04:08:33
[2024-10-31 01:59] VITALS: BP 162/78; PULSE 107; RESP 18; TEMP 36.6; O2SAT 96; BMI 25.8
[2024-10-31 02:52] LABS: Influenza A PCR NEGATIVE (Negative); Influenza B PCR NEGATIVE (Negative); Resp Syncy Virus RNA Qual PCR NEGATIVE (Negative); SARS COV2 PCR INHOUSE NEGATIVE (Negative)
--- OUTSIDE RECORDS SUMMARY | 2024-10-31 04:09 | XMS_ITS | Patient Health Record ---
Author Organization [facility] Address [address] [place] [address] Care Team Providers Care Larry Car Operator Name Role Phone Isaiah Hernandez MD Primary Care Provider J Luis Montes [phone] Reason For Referral No Information Encounters Encounter Location Date Provider Diagnosis [facility] [address] [place] [address] 05/15/2024 J Luis Alfonso [facility] [address] [place] [address] 07/02/2024 J Luis Alfonso Plan Of Treatment Next Appt Details Provider Name:J Luis Alfonso , 11/11/2024 04:20:00 PM, [address], [address], [place], [address], Insurance Providers Payer Name Payer Address Payer Phone Subscriber Number Group Number Insured Name Patient Relationship to Insured Coverage Start Date Coverage End Date [employer] [place] [address] [address] [place] [address] [id number] FILOMENA HARRINGTON Self - patient is the insured
[2024-10-31 05:24] VITALS: BP 144/80; PULSE 84; RESP 14; TEMP 36.4; O2SAT 98
--- NOTE | 2024-10-31 07:06 | ED_ITS ---
HPI - General Adult General Chief complaint: General Medical Stated complaint: Sharp upper abd pain Time Seen by Provider: 10/31/24 07:06 Source: patient and family Mode of arrival: ambulatory Limitations: no limitations History of Present Illness ED Provider: HPI narrative: 74-year-old woman who is presenting with right-sided ribcage pain worse when she coughs, no pleurisy no hemoptysis no chest pain denies ongoing dyspnea fevers or chills, started after recent pneumonia, she feels that ibuprofen is helping her but symptoms come back. Related Data Home Medications ?Medication ?Instructions ?Recorded ?Confirmed multivitamin 1 tab PO DAILY 05/29/22 05/29/22 Previous Rx's ?Medication ?Instructions ?Recorded azithromycin 500 mg tablet 500 mg PO Q24H #5 tabs 06/02/22 prednisone 20 mg tablet 40 mg (2 x 20 mg) PO DAILY #6 tabs 06/02/22 ferrous sulfate 325 mg (65 mg 325 mg PO DAILY 30 days #30 tabs 10/31/24 iron) tablet oxycodone 5 mg tablet 5 mg PO Q6H PRN pain #10 tabs 10/31/24 prednisone 20 mg tablet 40 mg (2 x 20 mg) PO DAILY 5 days 10/31/24 #10 tabs Allergies Allergy/AdvReac Type Severity Reaction Status Date / Time No Known Allergies Allergy Verified 10/31/24 02:01 Review of Systems Constitutional: Constitutional: Reports as per [facility] Past Medical History Medical History (Updated 10/31/24 @ 07:21 by Carlos Tolentino DO) Hepatic steatosis No pertinent past medical history Family History Family History Father Diabetes Mother Heart problem Social History Social History (Updated 05/30/22 @ 13:51 by Mohan Gonzales MD) Household Members: None Housing: Apartment Do you presently have visiting nurse or other home services: No Alcohol intake: current Alcohol intake frequency: 0-2 drinks per day Alcohol type: beer Patient Tobacco Use Status: Current everyday Tobacco user Tobacco use type: Cigarette Smoked in Last 30 Days: No e-Cigarette/Vaping Use: Never Used Second Hand Smoke Exposure: No Use of substances other than those prescribed or required for medical reasons: No Advance Directives: No Advance Directives Information Provided: Yes Do you have a plan to hurt others: No Plan service: No Current occupational status: employed Physical Exam ED Vital Signs: Vital Signs - 24 hr 10/31/24 01:59 10/31/24 05:24 Temperature 97.8 F 97.6 F Pulse Rate 107 H 84 Respiratory Rate 18 14 Blood Pressure 162/78 H 144/80 H Pulse Oximetry 96 98 Oxygen Delivery Method Room Air Room Air BMI result Body Mass Index 25.8 Const Other: * Gen: ?Overall well-appearing patient * CV: RRR, no obvious murmurs appreciated * Resp: ?No wheezing, tender over right lower ribcage, somewhat barrel-chested, radial pulses +2 bilaterally * Abd: ?Bowel sounds are present, no tenderness no rebound no rigidity * MSK: FROM, strength 5/5 all extremities, no lower extremity edema * Skin: Warm, dry, intact, * Neuro: ?Alert and oriented x3, moving upper and lower extremities symmetrically, no obvious facial asymmetry noted Medical Decision Making Medical Decision Making MDM Narrative: Overall patient is well-appearing not hypoxic tachycardic, no hemoptysis do not suspect PE, chest x-ray obtained to make sure she does not have pneumonia, pneumothorax, CHF, obvious rib fractures, x-rays unremarkable Blood work reassuring said that she has microcytic anemia we will recommend iron on outpatient basis, we will treat with a dose of steroids and pain medication for that feels days, did not feel further imaging such as CT is indicated this time Differential Diagnosis Differential Diagnoses: The differential diagnosis associated with the presentation includes CHF, COPD exacerbation, pneumonia, pneumothorax, ACS, PE, Lab Data [facility] Lab Attestation statement: I reviewed the patient's lab results. Labs: Lab Results 10/31/24 Range/Units 02:06 Influenza Type A (PCR) NEGATIVE (Negative) Influenza Type B (PCR) NEGATIVE (Negative) RSV RNA Qual (PCR) NEGATIVE (Negative) SARS-CoV-2 RNA (RT-PCR) NEGATIVE (Negative) Radiology Impression Discussion of test interpretation with radiology: I have reviewed the radiologist's reading. Radiologist Impression: Emphysema on chest x-ray Discharge Plan Discharge Clinical Impression: Anterior chest wall pain, History of emphysema, Microcytic anemia Patient Disposition: Home, Self-Care Additional Instructions: Your blood work revealed that you have anemia and most likely iron deficiency anemia so I am going to start her on iron supplements, just be mindful these can cause constipation and make your stool appear black, chest x-ray with evidence of emphysema, and an examination tender over the right lower ribcage, as discussed I am starting you on dose of steroids for your symptoms, 1st dose in the ER, thereafter continue starting tomorrow, and pain medications you can use oxycodone 2.5 mg to 5 mg every 4-6 hours as needed for pain, I do recommend that you take Tylenol 975 mg every 6 hours 1st before use oxycodone. Follow up with the PCP any other issues concerns come back to the ER Prescriptions: New ferrous sulfate 325 mg (65 mg iron) tablet 325 mg PO DAILY 30 Days Qty: 30 0RF prednisone 20 mg tablet 40 mg PO DAILY 5 Days Qty: 10 0RF oxycodone 5 mg tablet 5 mg PO Q6H PRN (Reason: pain) Qty: 10 0RF Rx Instructions: Partial Fill upon patient request. No Action multivitamin Tablet 1 tab PO DAILY azithromycin 500 mg Tablet 500 mg PO Q24H Qty: 5 0RF prednisone 20 mg tablet 40 mg PO DAILY Qty: 6 0RF Print Language: Romansh
[2024-10-31] MEDS: dexAMETHasone 2 MG TABLET 10 MG PO (07:44)
[2024-10-31] MEDS: oxyCODONE HCl Immed Release 5 MG TABLET PO (07:44)
[2024-10-31 07:47] VITALS: BP 144/80; PULSE 84; RESP 14; TEMP 36.4; O2SAT 98
== END 2024-10-31 07:50 | disposition home or self-care (01) ==
PROVIDERS: Emergency Provider Emergency Medicine
DX: R07.89 Other chest pain (principal); D50.8 Other iron deficiency anemias; R05.9 Cough, unspecified; Z03.818 Encounter for observation for suspected exposure to other biological agents ruled out
CPT/HCPCS: 0241U; 71046; 99283; 99284; J8540

== ENCOUNTER 2024-11-13 12:38 | Outpatient (REF) | payer OTHER, SELFPAY ==
[2024-11-13 12:49] LABS: MANUAL DIFF FLAG NO
[2024-11-13 13:21] LABS: Basophils Percent Auto 0.5 % (0-2); Eosinophils Absolute Auto 0.2 X10*3/uL (0.0-0.4); Hematocrit 32.5 % (37.0-47.0); Imm Gran Abs Auto 0.02 X10*3/uL (0.00-0.03); Imm Gran Pct Auto 0.3 % (0.0-0.4); Lymphocytes Absolute Auto 1.8 X10*3/uL (1.2-4.9); Lymphocytes Percent Auto 31.8 % (20-40); Mean Corpuscular HGB Conc 30.8 g/dl (31.0-35.0); Mean Corpuscular Volume 81.3 fL (80.0-98.0); Mean Platelet Volume 10.8 fL (9.4-12.3); Monocytes Absolute Auto 0.5 X10*3/uL (0.1-1.2); Neutrophils Absolute Auto 3.2 x10*3/uL (2.0-8.3); Neutrophils Percent Auto 55.4 % (45-73); Platelet Count 304 X10*3/uL (160-400); Red Cell Distribution Width 19.9 % (11.0-16.0); White Blood Count 5.8 X10*3/uL (4.8-10.8)
[2024-11-13 13:59] LABS: Iron 31 mcg/dL (30-160); Percent Iron Saturation 10 % (15-50); Total Iron Binding Capacity 315 mcg/dL (228-428); Unsaturated Iron Binding 284 ug/dL
[2024-11-13 14:16] LABS: Ferritin 32 ng/mL (10-250)
[2024-11-13 14:24] LABS: Folate 7.5 ng/mL (> or = 4.0); Vitamin B12 289 pg/mL (200-900)
== END 2024-11-13 12:39 | disposition home or self-care (01) ==
LOC: HO.LAB 12:38
PROVIDERS: Visit Provider Internal Medicine
DX: D50.9 Iron deficiency anemia, unspecified (principal)
CPT/HCPCS: 36415; 82607; 82728; 82746; 83540; 85025

== ENCOUNTER 2024-12-03 13:24 | Day surgery (SDC) | payer OTHER, SELFPAY ==
--- OUTSIDE RECORDS SUMMARY | 2024-11-12 08:13 | XMS_ITS | Patient Health Record ---
Author Organization [facility] Address [address] [place] [address] Care Team Providers Care Leasing Coordinator Name Role Phone Christine Sanders M.D. Primary Care Provider Unavail ole J Luis Alfonso Unavailable [phone] Allergies No Known Allergies Reason For Referral No Information Medications Medication SIG (Take, Route, Fr equency, Duration) Notes Start Date End Date Status Iron 325 (65 Fe) MG 1 tablet Orally Thre e times a Week Active Immunizations Vaccine Route Administration Date Status Comme nts Influenza Unknown 02/18/2024 Administered Social History Tobacco Use: Social History Observation Description Date Details (start date - stop date) Former Smoker NA - NA Tobacco Control (Standard) Question Answer Notes Tobacco use: Former smoker AUDIT-C (Standard) Question Answer Notes Did you have a drink contain ing alcohol in the past year? Yes How often did you have a dri nk containing alcohol in the past year? Daily or almost daily (4 points) How many drinks did you have on a typical day when you were drinking in the past year? 1 or 2 drinks (0 point) How often did you have six o r more drinks on one occasion in the past year? Never (0 point) Points 4 Interpretation Positive Problems Problem Type SNOMED Code ICD Code Onset Dates Problem Status W/U Status Risk Notes Problem Iron deficiency anemia (55226731) Iron deficiency anemia (D50.9) Active confirmed Vital Signs Temperature 97.3 degrees Fahrenheit 11/11/2024 Blood pressure diastolic 01 mm Hg 11/11/2024 Height 66 in 11/11/2024 Blood pressure systolic 001 mm Hg 11/11/2024 Weight 150.8 lbs 11/11/2024 BMI 24.34 kg/m2 11/11/2024 Procedures Procedure Date Ordered Date Performed Result Body Sit e UPPER GI ENDOSCOPY 11/11/2024 N/A COLONOSCOPY 11/11/2024 N/A Encounters Encounter Location Date Provider Diagnosis [facility] [address] [place] [phone] 11/11/2024 J Luis Alfonso Iron deficiency anemia D50.9 and History of colon polyps Z86.0100 [facility] [address] [place] [phone] 05/15/2024 J Luis Alfonso [facility] [address] [place] [phone] 07/02/2024 J Luis Alfonso [facility] [address] [place] [phone] 11/11/2024 J Luis Alfonso Assessments Encounter Date Diagnosis (ICD Code) Assessment Notes Treatment Notes Treatment Clinical Notes Section Notes 11/11/2024 Iron deficiency anemia (ICD-10 - D50.9) 11/11/2024 History of colon polyps (ICD-10 - Z86.0100) Plan Of Treatment Pending Test Test Name Order Date UPPER GI ENDOSCOPY 11/11/2024 COLONOSCOPY 11/11/2024 IRON + IBC (FE) 11/11/2024 CBC w DIFF 11/11/2024 Ferritin 11/11/2024 Vitamin B12 and Folate 11/11/2024 Next Appt Details Provider Name:J Luis Alfonso , 12/03/2024 02:30:00 PM, [address] [place] [address] , [place], [place], [phone], Insurance Providers Payer Name Payer Address Payer Phone Subscriber Number Group Number Insured Name Patient Relationship to Insured Coverage Start Date Coverage End Date [employer] [address] [address] [place] [address] [id number] FILOMENA HARRINGTON Self - patient is the insured Medical (General) History Medical History History ICD Code COPD Hospitalization History Reason Date(Month/Year) pneumonia
[2024-12-01 09:59] VITALS: BMI 24.3
--- NOTE | 2024-12-02 09:00 | HO.ANESPROP2 ---
Documented by User: Lori Laguerre NP 12/02/24 09:07 HPI - Anesthesia Eval Consult details Narrative: 74yo F for Upper Endoscopy and Colonoscopy [facility] Active Problems Active Problems: All Active Problems Influenza A (Acute) Acidosis, lactic (Acute) Hypoxia (Acute) Pneumonia (Acute) Hepatic steatosis (Acute) Past Medical History Medical History Pneumonia Iron deficiency anemia COPD (chronic obstructive pulmonary disease) Hepatic steatosis Family History Family History Father Diabetes Mother Heart problem Surgical History Surgical History H/O colonoscopy Social History Social History Household Members: None Household Members Other:: daughter Housing: Apartment Are you a primary healthcare or medical to a significant other at home: No Do you presently have visiting nurse or other home services: No Alcohol intake: current Alcohol intake frequency: 0-2 drinks per day Alcohol type: beer Patient Tobacco Use Status: Former Tobacco user Tobacco use type: Cigarette e-Cigarette/Vaping Use: Never Used Second Hand Smoke Exposure: No Have you been hit, kicked, punched, or otherwise hurt by someone within the past year? If so, by whom?: No Are you DNR?: No Advance Directives: No Advance Directives Information Provided: Yes Poor oral hygiene: No service: No Current occupational status: employed Meds Allergies Allergy/AdvReac Type Severity Reaction Status Date / Time No Known Allergies Allergy Verified 12/03/24 13:50 Home Medications ?Medication ?Instructions ?Recorded ?Confirmed ?Last Taken ?Type multivitamin 1 tab PO DAILY 05/29/22 12/03/24 Unknown History Exam Height,Weight and Vital Signs: Height 5 ft 6 in Weight 68.402 kg Assessment and Plan Assessment Anesthesia Assessment: Chart Reviewed Documented by User: Get Love MD 12/03/24 14:17 [facility] Past Medical History Medical History Pneumonia Iron deficiency anemia COPD (chronic obstructive pulmonary disease) Hepatic steatosis Functional capacity: independent ambulation Family History Family History Father Diabetes Mother Heart problem Family history of problems with anesthesia: No Surgical History Surgical History H/O colonoscopy History of Problems with Anesthesia: No Social History Social History Household Members: None Household Members Other:: daughter Housing: Apartment Are you a primary healthcare or medical to a significant other at home: No Do you presently have visiting nurse or other home services: No Alcohol intake: current Alcohol intake frequency: 0-2 drinks per day Alcohol type: beer Patient Tobacco Use Status: Former Tobacco user Tobacco use type: Cigarette e-Cigarette/Vaping Use: Never Used Second Hand Smoke Exposure: No Have you been hit, kicked, punched, or otherwise hurt by someone within the past year? If so, by whom?: No Are you DNR?: No Advance Directives: No Advance Directives Information Provided: Yes Poor oral hygiene: No service: No Current occupational status: employed Meds Allergies Allergy/AdvReac Type Severity Reaction Status Date / Time No Known Allergies Allergy Verified 12/03/24 13:50 Home Medications ?Medication ?Instructions ?Recorded ?Confirmed ?Last Taken ?Type multivitamin 1 tab PO DAILY 05/29/22 12/03/24 Unknown History Exam Exam Date and Time: 12/03/2024 Airway Mallampati Class: II TM Dist: >3cm Denture: Upper Partial: Lower Loose/Missing/Broken Teeth: Yes and No Heart: rrr Lungs: cta Other: normal Assessment and Plan Final Anesthetic Review Family History of Problems with Anesthesia: No History of Problems with Anesthesia: No NPO: Yes ASA Class: II Final Preanesthetic Review: No Changes in Pt Med Stat, Meds/Allgs Chart Reviewed, Consent Obtained/Reviewed and Anes Risks/Benef Reviewed Patient Risk: Low Procedure Risk: Low Anesthetic Plan Anesthetic Plan: MAC:
[2024-12-03 13:51] VITALS: BMI 23.7
[2024-12-03] MEDS: Lactated Ringers 1,000 ML 100 ML IVCONT (13:53)
[2024-12-03 14:05] VITALS: BP 146/91; PULSE 81; RESP 18; TEMP 36.7; O2SAT 99
[2024-12-03 15:30] VITALS: BP 105/60; PULSE 81; RESP 17; TEMP 36.1; O2SAT 98
--- NOTE | 2024-12-03 15:35 | PM.OP ---
Brief Operative Note Date of Service: 12/03/24 Pre-op diagnosis: Iron def. anemia Post-op diagnosis: other (Gastric ulcers, Diverticulosis) Procedure: EGD with biopsies, Colonoscopy to the cecum Surgeon: J Luis Alfonso MD Anesthesia: MAC Was an Group Managing Director used for this Procedure?: No Estimated blood loss (mL): 2.0 Pathology: other (A. 2nd and 3rd portions of duodenum B. Gastric antrum C. Proximal gastric ulcers D. EG Junction at 38cm) Condition: stable Disposition: PACU
[2024-12-03 15:45] VITALS: BP 120/64; PULSE 61; RESP 16; O2SAT 98
[2024-12-03 15:58] VITALS: BP 132/68; PULSE 59; RESP 16; O2SAT 98
--- NOTE | 2024-12-04 10:25 | OP_ITS ---
DATE OF SERVICE: 12/03/2024 SURGEON: J Luis Alfonso MD PREOPERATIVE DIAGNOSIS: POSTOPERATIVE DIAGNOSIS: PROCEDURE PERFORMED: ESTIMATED BLOOD LOSS: COMPLICATIONS: ANESTHESIA: ASSISTANTS: SPECIMENS: ADDENDUM: Of note, at 20 cm, there was an area of previously placed submucosal ink. There was no sign of any residual polyp tissue at this area. MD BEATRIZ Juares/MODL / [id number]
--- NOTE | 2024-12-04 13:26 | OP_ITS ---
DATE OF SERVICE: 12/03/2024 SURGEON: J Luis Alfonso MD INDICATIONS: The patient presents for evaluation of iron deficiency anemia. Full consent has been obtained from her for this, including risks of bleeding and perforation. PREOPERATIVE DIAGNOSIS: Iron deficiency anemia. POSTOPERATIVE DIAGNOSIS: PROCEDURE PERFORMED: Esophagogastroduodenoscopy with biopsies and colonoscopy to the cecum. ESTIMATED BLOOD LOSS: COMPLICATIONS: ANESTHESIA: Medications used; monitored anesthesia care. ASSISTANTS: SPECIMENS: POSTOPERATIVE DIAGNOSES: Iron deficiency anemia, proximal gastric ulcers, small hiatal hernia, mild gastritis, rule out celiac disease, diverticulosis, internal and external hemorrhoids with diminished sphincter tone. DESCRIPTION OF PROCEDURE: The patient was placed in the left lateral decubitus position. The Olympus video gastroscope was passed in the posterior oropharynx and upper esophagus under direct vision. The scope was passed slowly to the distal esophagus. The gastroesophageal junction was visualized at 38 cm. There was some very minimal irregularity consistent with reflux. There was no evidence of any esophagitis nor Sweet's mucosa. The scope entered into the stomach. There was a small hiatal hernia. The scope was advanced to pylorus and the duodenum was cannulated to the descending portion. The duodenum including the bulb appeared normal without mass or ulceration. Biopsies were obtained in the second and third portions of duodenum. The scope was withdrawn back to the stomach. The gastric antrum had some mild areas of edema and erythema, but no erosions or ulceration. There was good peristalsis. Biopsies were obtained. The scope was retroflexed, visualizing the proximal stomach carefully, which appeared normal, without any sign of mass or ulceration. The scope was straightened and withdrawn back into the very proximal stomach, where I visualized 2 areas of edema with some central ulceration and inflammation in the very proximal stomach at approximately 40 cm. These appeared to be on the posterior wall. There was no bleeding. They appeared to be probably benign. Multiple biopsies were obtained from the margins of the ulcers. The scope was then withdrawn back to the esophagus. I did obtain biopsies of the EG junction at 38 cm. Proximal to this, the esophageal mucosa appeared normal. The scope was withdrawn from the patient. She was turned around for the colonoscopy. The digital rectal exam revealed some external hemorrhoids and a diminished sphincter tone. The Olympus video pediatric colonoscope was entered into the rectum and advanced easily to the cecum. Once in the cecum, I did identify normal-appearing cecal pouch with appendiceal orifice and normal-appearing ileocecal valve. The entire cecum and ileocecal valve appeared normal. The scope was then slowly withdrawn, assessing all mucosal surfaces carefully. Preparation was excellent after some irrigation and suctioning. A previously placed submucosal ink shobha was noted at 20cm I did not visualize any sign of polyps, colitis, or angiodysplasias. There was a moderate amount of sigmoid diverticulosis. In the rectum, scope was retroflexed, visualizing some prominent internal hemorrhoids. The rectal mucosa appeared normal. Scope was straightened and withdrawn from the patient. The patient tolerated the procedures well and was returned to the recovery area in stable condition. IMPRESSION: 1. Proximal gastric ulcers, status post biopsy. 2. Mild gastritis, rule out Helicobacter pylori. 3. Rule out celiac disease. 4. Small hiatal hernia, gastroesophageal reflux. 5. Diverticulosis. 6. Internal and external hemorrhoids with diminished rectal sphincter tone. PLAN: The results of the biopsies will be checked. I do suspect the findings on the upper endoscopy would account for her anemia. I shall start her on omeprazole 40 mg daily. I have advised her to stay off all aspirin and NSAIDs long-term. I would recommend a repeat upper endoscopy in 2 to 3 months to assess for healing. If H pylori is present in the biopsies, I would recommend we treat that as well. She was advised to resume her iron today. She will need followup CBCs as well. Her most recent labs did show some improvement on November 13. Her ferritin was 32, B12 and folate levels were normal, iron was 31, and iron saturation was 10%. I will be in touch with her to set up a followup upper endoscopy for the Fall sometime to assess for ulcer healing. This has been discussed with her daughter. MD BEATRIZ Juares/RENAE / [id number] NIYA
== END 2024-12-03 16:50 | disposition home or self-care (01) ==
PROVIDERS: Visit Provider Internal Medicine
PROC: (CPT 45378; principal; 2024-12-03 14:30)
DX: D50.9 Iron deficiency anemia, unspecified (principal); Z86.0101 Personal history of adenomatous and serrated colon polyps; K57.30 Diverticulosis of large intestine without perforation or abscess without bleeding; K64.8 Other hemorrhoids; K64.4 Residual hemorrhoidal skin tags; K62.89 Other specified diseases of anus and rectum; K29.50 Unspecified chronic gastritis without bleeding; B96.81 Helicobacter pylori [H. pylori] as the cause of diseases classified elsewhere; K25.9 Gastric ulcer, unspecified as acute or chronic, without hemorrhage or perforation; K44.9 Diaphragmatic hernia without obstruction or gangrene; J44.9 Chronic obstructive pulmonary disease, unspecified; Z79.899 Other long term (current) drug therapy
CPT/HCPCS: 45378; 43239; 88305; 88313; 88342; J2003; J2704; J3010

== ENCOUNTER 2024-12-10 14:04 | Outpatient (AMB) | payer OTHER, SELFPAY ==
--- NOTE | 2024-12-10 13:57 | MHC.PC.OV ---
Vital Signs 12/10/24 14:07 Height 5 ft 6 in Weight 150 lb BMI 24.2 BP 150/82 H Blood Pressure Location Lt brachial Position Sitting Respiration 16 Pulse 69 Pulse Source Pulse Oximeter Temp 96.9 F Temp Source Temporal Artery Scan Pulse Oximetry (%) 99 Oxygen Delivery Method Room Air Intake Visit Reasons: Routine Thermodynamics Professor Required: No Accompanied by: Self / Same As Patient Allergies No Known Allergies Allergy (Verified 12/10/24 13:58) Tobacco use date assessed: 12/10/24 HPI HPI Comments History of Present Illness Details The patient is a 74 year old female with a past medical history of GERD, COPD, h/o tobacco use, osteopenia, CKD, anemia, fatty liver presenting for follow up COPD-stable. History of tobacco use quit x 3 years Osteopenia-check vitamin D GI: Recent double endocscopy with gatritis, gastric ulcers, diverticulosis, +H. Pylori-she has already started Colonoscopy 12/04/2024 Mammo-every other year 09/2023 ROS CONSTITUTIONAL: Denies weight loss, fever and chills. HEENT: Denies changes in vision and hearing. RESPIRATORY: Denies SOB and cough. CV: Denies palpitations and CP GI: Denies abdominal pain, nausea, vomiting and diarrhea. : Denies dysuria and urinary frequency. MSK: Denies new myalgia and joint pain. SKIN: Denies rash and pruritus. NEUROLOGICAL: Denies headache PSYCHIATRIC: Denies recent changes in mood. PHYSICAL EXAM: GENERAL: Alert and oriented x 3. NAD EYES: EOMI. Anicteric. HENT: Moist mucous membranes. No scleral icterus. No cervical lymphadenopathy. LUNGS: Clear to auscultation bilaterally. CARDIOVASCULAR: Regular rate and rhythm. No murmur. No JVD. ABDOMEN: Soft, non-tender +bs EXTREMITIES: No edema. Non-tender. SKIN: No rashes or lesions. Warm. NEUROLOGIC: No focal neurological deficits. CN II-XII grossly intact PSYCHIATRIC: Cooperative. Appropriate mood and affect [facility] Medical History Pneumonia Iron deficiency anemia COPD (chronic obstructive pulmonary disease) Hepatic steatosis Surgical History H/O colonoscopy Family History Father Diabetes Mother Heart problem Social History Household Members: None Household Members Other:: daughter Housing: Apartment Are you a primary home health care coordinator to a significant other at home: No Do you presently have visiting nurse or other home services: No Alcohol intake: current Alcohol intake frequency: 0-2 drinks per day Alcohol type: beer Patient Tobacco Use Status: Former Tobacco user Tobacco use type: Cigarette e-Cigarette/Vaping Use: Never Used Second Hand Smoke Exposure: No service: No Current occupational status: employed Questionnaire PHQ-9 Over the last 2 weeks, how often have you been bothered by any of the following problems? 1. Little interest or pleasure in doing things: not at all 2. Feeling down, depressed, or hopeless: not at all 3. Trouble falling or staying asleep, or sleeping too much: not at all 4. Feeling tired or having little energy: not at all 5. Poor appetite or overeating: not at all 6. Feeling bad about yourself - or that you are a failure or have let yourself or your family down: not at all 7. Trouble concentrating on things, such as reading the newspaper or watching television: not at all 8. Moving or speaking so slowly that other people could have noticed. Or the opposite - being so fidgety or restless that you have been moving around a lot more than usual: not at all 9. Thoughts that you would be better off or of hurting yourself in some way: not at all Total score: 0 Source: Developed by Drs. J Luis Adames, Vidhya Sousa, Tino Barber and colleagues, with an educational tiffanie from [employer]. Thrive Questionnaire Date Thrive assessed: 12/10/24 I am a: Patient What is your living situation today?: I have a steady place to live Within the past 12 months, did the food you bought not last and you didn't have the money to get more?: Never true Within the past 12 months, did you worry whether your food would run out before you got money to buy more?: Never true Do you have trouble paying for medicines?: No Do you have trouble getting transportation to medical appointments?: No Do you have trouble paying your heating and electricity bill?: No Do you have trouble taking care of your child, family member or friend?: No Do you have trouble with day-to-day activities such as bathing, preparing meals, shopping, managing finances, etc.?: No Are you currently unemployed and looking for a job?: No Are you interested in more education?: No THRIVE Score: 0 AUDIT C Alcohol Use Questionnaire (AUDIT-C) 1. How often do you have a drink containing alcohol?: 4 or more times a week 2. How many drinks containing alcohol do you have on a typical day when you are drinking?: 1 or 2 Total Score: 4 ANTHONY-7 AMB Questionnaire ANTHONY-7 Date ANTHONY - 7 assessed: 12/10/24 Feeling nervous, anxious, or on edge: 0 = Not at all Not being able to stop or control worryin = Not at all Worrying too much about different things: 0 = Not at all Trouble relaxin = Not at all Being so restless that it is hard to sit still: 0 = Not at all Becoming easily annoyed or irritable: 0 = Not at all Feeling afraid as if something awful might happen: 0 = Not at all Total ANTHONY-7 score (0-4 normal; 5-9 mild; 10-14 moderate; 15-21 severe): 0 Source: Developed by Drs. J Luis Adames, Vidhya Sousa, Tino Barber and colleagues, with an educational tiffanie from [employer]. Physical exam (Primary Care) Vital Signs: Last Vital Signs Temp 96.9 F 12/10/24 14:07 Pulse 69 12/10/24 14:07 Resp 16 12/10/24 14:07 BP 150/82 H 12/10/24 14:07 Pulse Ox 99 12/10/24 14:07 Oxygen Delivery Method Room Air 12/10/24 14:07 BMI result Body Mass Index 24.2 Tobacco/Smoking Status: Tobacco use Status Tobacco use date assessed 12/10/24 12/10/24 14:00 Patient Tobacco Use Status Former Tobacco user 12/10/24 14:00 Tobacco use type Cigarette 12/10/24 14:00 e-Cigarette/Vaping Use Never Used 12/10/24 14:00 PHQ-9: PHQ-9 Score PHQ-9: Total score 0 12/10/24 14:33 Thrive Assessment: Date of Thrive Assessment Date Thrive assessed 12/10/24 12/10/24 14:33 Coding Level of Care Code Est Pt Level 4 (98676) Complex EM visit Add On G2211 Diagnoses H. pylori infection A04.8 Hepatic steatosis K76.0 Assessment & Plan Assessment & Plan (1) H. pylori infection: Code(s): A04.8 - Other specified bacterial intestinal infections Category: Medical (2) Hepatic steatosis: Code(s): K76.0 - Fatty (change of) liver, not elsewhere classified Category: Medical Plan 74 year old to establish care Past medical, surgical social reviewed H pylori-advised GI follow up. She will call next week if she does not hear from GI for treatment. Continue PPI Orders: Orders Lipid Panel 12/10/24 A04.8 - Other specified bacterial intestinal infections, D64.9 - Anemia, unspecified Vitamin D 25-OH (D2 and D3) 12/10/24 A04.8 - Other specified bacterial intestinal infections, D64.9 - Anemia, unspecified Complete Blood Count Auto Diff 12/10/24 A04.8 - Other specified bacterial intestinal infections, D64.9 - Anemia, unspecified Comprehensive Met. Panel 12/10/24 A04.8 - Other specified bacterial intestinal infections, D64.9 - Anemia, unspecified TSH reflex Free T4 12/10/24 A04.8 - Other specified bacterial intestinal infections, D64.9 - Anemia, unspecified
[2024-12-10 14:07] VITALS: BP 150/82; PULSE 69; RESP 16; TEMP 36.1; O2SAT 99; BMI 24.2
--- OUTSIDE RECORDS SUMMARY | 2024-12-10 14:50 | XMS_ITS | Patient Health Record ---
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 Primary Care Provider Unavail ole J Luis Alfonso Unavailable [phone] Allergies No Known Allergies Results Component Value Reference Range Notes Ferritin Reviewed date:11/14/2024 09:55:55 PM Interpretation: Performing Lab:[facility], [address] [place] [phone] Notes/Report: Ferritin 32 10-250 ng/mL Vitamin B12 and Folate Reviewed date:11/14/2024 09:56:08 PM Interpretation: Performing Lab:[facility], [address] [place] [phone] Notes/Report: Vitamin B12 289 200-900 pg/mL NORMAL 200-900 PG/ML INDETERMINATE 160-199 PG/ML DEFICIENT < 160 PG/ML Folate 7.5 > or = 4.0 ng/mL Reference Values: > or = 4.0 ng/mL < 4.0 ng/mL suggests folate deficiency Methotrexate, aminopterin and folinic acid (leucovorin) are chemotherapeutic agents whose molecular structures are similar to folate; therefore, the [facility] Chemist folate assay cannot be used for patients using these drugs. Complete Blood Count Auto Di ff Reviewed date:11/14/2024 09:55:17 PM Interpretation: Performing Lab:[facility], [address] [place] [phone] Notes/Report: White Blood Count 5.8 4.8-10.8 X10*3/uL Red Blood Count 4.00 4.20-5.50 X10*6/uL Hemoglobin 10.0 12.0-16.0 g/dl Hematocrit 32.5 37.0-47.0 % Mean Corpuscular Volume 81.3 80.0-98.0 fL Mean Corpuscular Hemoglobin 25.0 27.0-33.0 pg Mean Corpuscular HGB Conc 30.8 31.0-35.0 g/dl Red Cell Distribution Width 19.9 11.0-16.0 % Platelet Count 304 160-400 X10*3/uL Mean Platelet Volume 10.8 9.4-12.3 fL Neutrophils Percent Auto 55.4 45-73 % Imm Gran Pct Auto 0.3 0.0-0.4 % Lymphocytes Percent Auto 31.8 20-40 % Monocytes Percent Auto 9.0 2-11 % Eosinophils Percent Auto 3.0 0-4 % Basophils Percent Auto 0.5 0-2 % NRBC Pct Auto 0.0 0.0-0.2 /100WBC Neutrophils Absolute Auto 3.2 2.0-8.3 x10*3/u L Imm Gran Abs Auto 0.02 0.00-0.03 X10*3/uL Lymphocytes Absolute Auto 1.8 1.2-4.9 X10*3/u L Monocytes Absolute Auto 0.5 0.1-1.2 X10*3/uL Eosinophils Absolute Auto 0.2 0.0-0.4 X10*3/u L Basophils Absolute Auto 0.0 0.0-0.2 X10*3/uL NRBC Abs Auto 0.000 0.0-0.012 X10*3/uL IRON PROFILE Reviewed date:11/14/2024 09:54:47 PM Interpretation: Performing Lab:[address] [phone] Notes/Report: Iron 31 30-160 mcg/dL Total Iron Binding Capacity 315 228-428 mcg/d L Percent Iron Saturation 10 15-50 % Unsaturated Iron Binding 284 Pathology (Not yet reviewed by provider) Interpretation:H.pylori Performing Lab:[address] [phone] Notes/Report: Reason For Referral No Information Medications Medication SIG (Take, Route, Fr equency, Duration) Notes Start Date End Date Status Iron 325 (65 Fe) MG 1 tablet Orally Thre e times a Week Active Omeprazole 40 MG 1 Orally Once a day every morning for 30 days 12/03/2024 Active Immunizations Vaccine Route Administration Date Status [...] Status Risk Notes Problem Iron deficiency anemia (D50.9) Active confirmed Vital Signs Temperature 97.3 degrees Fahrenheit 11/11/2024 Blood pressure diastolic 01 mm Hg 11/11/2024 Height 66 in 11/11/2024 Blood pressure systolic 001 mm Hg 11/11/2024 Weight 150.8 lbs 11/11/2024 BMI 24.34 kg/m2 11/11/2024 Procedures Procedure Date Ordered Date Performed Result Body Sit e UPPER GI ENDOSCOPY 11/11/2024 N/A COLONOSCOPY 11/11/2024 N/A Encounters Encounter Location Date Provider Diagnosis [facility] [address] [place] [id number] 12/03/2024 J Luis Alfonso [facility] [address] [place] [phone] 11/11/2024 J Luis Alfonso Iron deficiency anemia D50.9 and History of colon polyps Z86.0100 [facility] [address] [place] [phone] 12/06/2024 J Luis Alfonso [facility] [address] [place] [phone] 05/15/2024 J Luis Alfonso [facility] [address] [place] [phone] 07/02/2024 J Luis Alfonso [facility] [address] [place] [phone] 11/11[facility]20[facility] [address] [place] [phone] 11/30/2024 J Luis Alfonso [facility] [address] [place] [phone] 12/03/2024 J Luis Alfonso Assessments Encounter Date Diagnosis (ICD Code) Assessment Notes Treatment Notes Treatment Clinical Notes Section Notes 11/11/2024 Iron deficiency anemia (ICD-10 - D50.9) Overall, Filomena appears well not having any particular new or worrisome GI complaints. However, her iron deficiency anemia is worrisome for potential chronic GI blood loss which could be a sign of underlying GI neoplasm. Other possibilities would include that of benign polyps, angiodysplasias, silent gastritis or ulcer disease, and/or celiac disease with iron malabsorption. As such, I did recommend she undergo an upper endoscopy and colonoscopy later this summer for further evaluation. We did review the rationale for this in detail in regard to the anemia and the need to rule out possibilities including that of GI neoplasm. Full consent has been obtained from her for both procedures, including risks of bleeding and perforation. The procedures will be done with monitored anesthesia care. I shall check some labs today including a CBC and iron profile to be sure her blood count has been stable. Filomena understood and was comfortable with this plan. Thank you again for allowing me to participate in Filomena's care. I shall continue to keep you advised of her progress. 11/11/2024 History of colon polyps (ICD-10 - Z86.0100) Overall, Filomena appears well not having any particular new or worrisome GI complaints. However, her iron deficiency anemia is worrisome for potential chronic GI blood loss which could be a sign of underlying GI neoplasm. Other possibilities would include that of benign polyps, angiodysplasias, silent gastritis or ulcer disease, and/or celiac disease with iron malabsorption. As such, I did recommend she undergo an upper endoscopy and colonoscopy later this summer for further evaluation. We did review the rationale for this in detail in regard to the anemia and the need to rule out possibilities including that of GI neoplasm. Full consent has been obtained from her for both procedures, including risks of bleeding and perforation. The procedures will be done with monitored anesthesia care. I shall check some labs today including a CBC and iron profile to be sure her blood count has been stable. Filomena understood and was comfortable with this plan. Thank you again for allowing me to participate in Filomena's care. I shall continue to keep you advised of her progress. Plan Of Treatment Pending Test Test Name Order Date UPPER GI ENDOSCOPY 11/11/2024 COLONOSCOPY 11/11/2024 IRON + IBC (FE) 11/11/2024 CBC w DIFF 11/11/2024 Pathology 12/03/2024 Insurance Providers Payer Name Payer Address Payer Phone Subscriber Number Group Number Insured Name Patient Relationship to Insured Coverage Start Date Coverage End Date [employer] [place] [address] [address] [place] [address] [id number] FILOMENA HARRINGTON Self - patient is the insured Medical (General) History Medical History History ICD Code COPD Colonoscopy [place] [address] Aldana with removal of 2 tubular adenomas and removal of hyperplastic polyps Iron def. anemia- Hgb 9.2 in 04/2024 wit h MCV 77 Hospitalization History Reason Date(Month/Year) pneumonia
--- OUTSIDE RECORDS SUMMARY | 2024-12-10 14:51 | XMS_ITS | Patient Health Record ---
Author Organization [facility] Address [address] [place] [address] Care Team Providers Care Food And Beverage Operations Manager Name Role Phone Isaiah Hernandez MD Primary Care Provider Juliana Russell Unavailable [phone] Allergies No Known Allergies Reason For Referral No Information Social History Tobacco Use: Social History Observation Description Date Details (start date - stop date) Former Smoker NA - NA Tobacco Control (Standard) Question Answer Notes Tobacco use: Former smoker Additional Findings: Tobacco non-user Current no nsmoker Vital Signs Blood pressure diastolic 80 mm Hg 05/13/2024 Height 5ft 6inch in 05/13/2024 Blood pressure systolic 121 mm Hg 05/13/2024 Weight 160 lbs 05/13/2024 BMI 25.82 kg/m2 05/13/2024 Encounters Encounter Location Date Provider Diagnosis [address] [phone] 05/13/2024 Juliana Lundberg Pain in right toe(s) M79.674 ; Onychomycosis B35.1 and Pain in left toe(s) M79.[address] [phone] 04/27/2024 Juliana Lundberg Assessments Encounter Date Diagnosis (ICD Code) Assessment Notes Treatment Notes Treatment Clinical Notes Section Notes 05/13/2024 Pain in right toe(s) (ICD-10 - M79.674) 05/13/2024 Onychomycosis (ICD-10 - B35.1) 05/13/2024 Pain in left toe(s) (ICD-10 - M79.675) Plan Of Treatment No Information Insurance Providers Payer Name Payer Address Payer Phone Subscriber Number Group Number Insured Name Patient Relationship to Insured Coverage Start Date Coverage End Date [employer] [address] [address] [place] [address] [id number] Tania Carrion Self - patient is the insured Medical (General) History Medical History History ICD Code Measles COPD
== END 2024-12-10 14:32 | disposition home or self-care (01) ==
LOC: HO.HMCHD 14:04
PROVIDERS: Visit Provider Internal Medicine
DX: A04.8 Other specified bacterial intestinal infections (principal); K76.0 Fatty (change of) liver, not elsewhere classified

== ENCOUNTER 2025-05-03 15:49 | Outpatient (REF) | payer OTHER, SELFPAY ==
--- OUTSIDE RECORDS SUMMARY | 2024-07-02 05:00 | XMS_ITS ---
Author Organization [facility] Address [address] [place] [address] Care Team Providers Care Diagnostic Technologist Name Role Phone Christine Sanders M.D. Primary Care Provider Any Alfonso J Luis Chaudhari [phone] REASON FOR VISIT Patient presents today for a colon screening Encounters Encounter Location Date Provider Diagnosis [facility] [address] [place] [address] 07/02/2024 J Luis Alfonso Plan Of Treatment Next Appt Details Provider Name:J Luis Beni Kaden , 05/07/2025 03:00:00 PM, [address], [address], [place], [address], Progress Notes * LEN FILOMENADOB:[birth year] (74 yo F)Acc No.[id number]:07/02/2024 Progress Notes Patient: FILOMENA GREENE Provider: Baldev Alfonso MD :1950 A ge:74 Y S ex:Female Date:07/02/2024 Address:[address] [place] [address] [address], [id number] Pcp:Christine Sanders M.D. Subjective: * Chief Complaints: * Deisy grimes presents today for a colon screening * The named appointment provid er may or may not be the originator of this progress note, and it is not deemed complete until electronically signed by the appointment provider. Sign off status: Pending * Provider: Baldev Alfonso MD Date: 0 07/02/2024 Generated for Zurdo lynn/Fallon/[place] on: 1 07/05/2024 01:31 AM EST
--- OUTSIDE RECORDS SUMMARY | 2024-09-09 08:00 | XMS_ITS ---
Author Organization [facility] Address [address] [place] [address] Care Team Providers Care Senior Human Resources Representative Name Role Phone Christine Sanders M.D. Primary Care Provider J Luis Horta [phone] REASON FOR VISIT screening colonoscopy Encounters Encounter Location Date Provider Diagnosis [facility] [address] [place] [address] 09/09/2024 J Luis Alfonso Plan Of Treatment Next Appt Details Provider Name:J Luis Alfonso , 05/07/2025 03:00:00 PM, [address], [address], [place], [address], Progress Notes * FILOMENA HARRINGTONDOB:[birth year] (74 yo F)Acc No.[id number]:09/09/2024 Progress Notes Patient: FILOMENA GREENE Provider: Baldev Alfonso MD :1950 A ge:74 Y S ex:Female Date:09/09/2024 Address:[address] [place] [address] [address], [id number] Pcp:Christine Sanders M.D. Subjective: * Chief Complaints: * S creening colonoscopy * The named appointment provid er may or may not be the originator of this progress note, and it is not deemed complete until electronically signed by the appointment provider. Sign off status: Pending * Provider: Baldev Alfonso MD Date: 0 09/09/2024 Generated for Zurdo lynn/Fallon/eTransmitting on: 1 07/05/2024 01:30 AM EST
--- OUTSIDE RECORDS SUMMARY | 2024-12-03 09:30 | XMS_ITS ---
Author Organization [facility] Address [address] [place] [address] [place] [phone] Care Team Providers Care Shoe Coverer Name Role Phone Tommy Durham, Christine Primary Care Provider Unavail J Luis Alves Unavailable [phone] REASON FOR VISIT screening colon Medications Medication SIG (Take, Route, Frequency, Duration) Notes Start Date End Date Status Iron 325 (65 Fe) MG Tablet 1 tablet Oral ly Three times a Week Active Encounters Encounter Location Date Provider Diagnosis [facility] Outpatient [address] [place] [phone] 12/03/2024 J Luis Alfonso Plan Of Treatment Next Appt Details Provider Name:J Luis Alfonso , 05/07/2025 03:00:00 PM, [address] [place] [address], [address], [place], [address], Progress Notes * FILOMENA HARRINGTONDOB:[birth year] (74 yo F)Acc No.[id number]:12/03/2024 COLON WITH MAC Patient: FILOMENA GREENE Provider: Baldev Alfonso MD :1950 A ge:74 Y S ex:Female Date:12/03/2024 Address:[address] [place] [address] [address], [id number] Pcp:Christine Sanders M.D. Subjective: * Chief Complaints: * S creening colon * Medications: T akingIron 325 (65 Fe) MG Tablet 1 tablet Orally Three times a Week Taking Iron 325 (65 Fe) MG Tablet 1 tablet Orally Three times a Week * The named appointment provid er may or may not be the originator of this progress note, and it is not deemed complete until electronically signed by the appointment provider. Sign off status: Pending * Provider: Baldev Alfonso MD Date: 0 12/03/2024 Generated for Zurdo lynn/Fallon/Seymour on: 1 07/05/2024 01:32 AM EST
--- OUTSIDE RECORDS SUMMARY | 2024-12-06 18:58 | XMS_ITS ---
Author Organization [facility] Address [address] [place] [address] Care Team Providers Care Antenna Specialist Name Role Phone Christine Sanders M.D. Primary Care Provider Any J Luis Alves Unavailable [phone] REASON FOR VISIT Needs F/U OV and labs Problems Problem Type SNOMED Code ICD Code Onset Dates Problem Status W/U Status Risk Notes Problem Anemia (762143977) Anemia (D64.9) Active confirmed Encounters Encounter Location Date Provider Diagnosis [facility] [address] [place] [address] 12/06/2024 J Luis Alfonso Anemia D64.9 Assessments Encounter Date Diagnosis (ICD Code) Assessment Notes Treatment Notes Treatment Clinical Notes Section Notes 12/06/2024 Anemia (ICD-10 - D64.9) Plan Of Treatment Pending Test Test Name Order Date IRON + IBC (FE) 12/06/2024 CBC w DIFF 12/06/2024 Ferritin 12/06/2024 Vitamin B12 12/06/2024 Next Appt Details Provider Name:J Luis Alfonso , 05/07/2025 03:00:00 PM, [address], [address], [place], [address], Progress Notes * FILOMENA HARRINGTONDOB:[birth year] (74 yo F)Acc No.[id number]:12/06/2024 Patient: Diesy YANGFILOMENA SALINAS :1950 A ge:74 Y S ex:Female Address:[address] [place] [address] [address], [place] [address] Subjective: * Chief Complaints: * N eeds F/U OV and labs Assessment: * Assessment: 1. A nemia - D64.9 (Primary) Plan: * Treatment: * * Date:
[2025-05-03 16:05] LABS: MANUAL DIFF FLAG NO
[2025-05-03 17:08] LABS: Hematocrit 36.4 % (37.0-47.0); Hemoglobin 11.4 g/dl (12.0-16.0); Imm Gran Abs Auto 0.01 X10*3/uL (0.00-0.03); Imm Gran Pct Auto 0.2 % (0.0-0.4); Lymphocytes Absolute Auto 1.9 X10*3/uL (1.2-4.9); Mean Corpuscular HGB Conc 31.3 g/dl (31.0-35.0); Mean Corpuscular Hemoglobin 27.4 pg (27.0-33.0); Mean Corpuscular Volume 87.5 fL (80.0-98.0); NRBC Abs Auto 0.000 X10*3/uL (0.0-0.012); NRBC Pct Auto 0.0 /100WBC (0.0-0.2); Platelet Count 263 X10*3/uL (160-400); Red Blood Count 4.16 X10*6/uL (4.20-5.50); White Blood Count 4.9 X10*3/uL (4.8-10.8)
[2025-05-03 17:44] LABS: Iron 66 mcg/dL (30-160); Percent Iron Saturation 19 % (15-50); Total Iron Binding Capacity 356 mcg/dL (228-428); Unsaturated Iron Binding 290 ug/dL
[2025-05-03 18:22] LABS: Ferritin 12 ng/mL (10-250)
[2025-05-03 18:26] LABS: Vitamin B12 245 pg/mL (200-900)
--- OUTSIDE RECORDS SUMMARY | 2025-05-04 01:29 | XMS_ITS | Patient Health Record ---
Author Organization [facility] Address [address] [place] [address] Care Team Providers Care Poster Name Role Phone Christine Sanders M.D. Primary Care Provider Unavail ole J Luis Alfonso Unavailable [phone] Allergies No Known Allergies Results Component Value Reference Range Flag Notes Ferritin Reviewed date:11/14/2024 09:55:55 PM Interpretation: Performing Lab:[facility], [address] [place] [phone] Notes/Report: Ferritin 32 10-250 ng/mL N Vitamin B12 and Folate Reviewed date:11/14/2024 09:56:08 PM Interpretation: Performing Lab:[facility], [address] [place] [id number] Notes/Report: Vitamin B12 289 200-900 pg/mL N NORMAL 200-900 PG/ML INDETERMINATE 160-199 PG/ML DEFICIENT < 160 PG/ML Folate 7.5 > or = 4.0 ng/mL Reference Values: > or = 4.0 ng/mL < 4.0 ng/mL suggests folate deficiency Methotrexate, aminopterin and folinic acid (leucovorin) are chemotherapeutic agents whose molecular structures are similar to folate; therefore, the Night Monitor folate assay cannot be used for patients using these drugs. Complete Blood Count Auto Di ff Reviewed date:11/14/2024 09:55:17 PM Interpretation: Performing Lab:[address] [phone] Notes/Report: White Blood Count 5.8 4.8-10.8 X10*3/uL N Red Blood Count 4.00 4.20-5.50 X10*6/uL L Hemoglobin 10.0 12.0-16.0 g/dl L Hematocrit 32.5 37.0-47.0 % L Mean Corpuscular Volume 81.3 80.0-98.0 fL N Mean Corpuscular Hemoglobin 25.0 27.0-33.0 pg L Mean Corpuscular HGB Conc 30.8 31.0-35.0 g/dl L Red Cell Distribution Width 19.9 11.0-16.0 % H Platelet Count 304 160-400 X10*3/uL N Mean Platelet Volume 10.8 9.4-12.3 fL N Neutrophils Percent Auto 55.4 45-73 % N Imm Gran Pct Auto 0.3 0.0-0.4 % N Lymphocytes Percent Auto 31.8 20-40 % N Monocytes Percent Auto 9.0 2-11 % N Eosinophils Percent Auto 3.0 0-4 % N Basophils Percent Auto 0.5 0-2 % N NRBC Pct Auto 0.0 0.0-0.2 /100WBC N Neutrophils Absolute Auto 3.2 2.0-8.3 x10*3/uL N Imm Gran Abs Auto 0.02 0.00-0.03 X10*3/uL N Lymphocytes Absolute Auto 1.8 1.2-4.9 X10*3/uL N Monocytes Absolute Auto 0.5 0.1-1.2 X10*3/uL N Eosinophils Absolute Auto 0.2 0.0-0.4 X10*3/uL N Basophils Absolute Auto 0.0 0.0-0.2 X10*3/uL N NRBC Abs Auto 0.000 0.0-0.012 X10*3/uL N IRON PROFILE Reviewed date:11/14/2024 09:54:47 PM Interpretation: Performing Lab:[address] [phone] Notes/Report: Iron 31 30-160 mcg/dL N Total Iron Binding Capacity 315 228-428 mcg/dL N Percent Iron Saturation 10 15-50 % L Unsaturated Iron Binding 284 Pathology (Not yet reviewed by provider) Interpretation:H.pylori Performing Lab:[address] [phone] Notes/Report: Reason For Referral No Information Medications Medication SIG (Take, Route, Frequency, Duration) Notes Start Date End Date Status Iron 325 (65 Fe) MG Tablet 1 tablet Oral ly Three times a Week Active Omeprazole 40 MG Capsule Delayed Release 1 Orally Once a day every morning; Duration: 30 days 12/03/2024 Activ e Immunizations Vaccine Route Administration Date Status Comme nts Influenza Unknown 02/18/2024 Administered Social History Tobacco Use: Social History Observation Description Date Details (start date - stop date) Former Smoker NA - NA Social History Drug/Alcohol: Social Info Question Answer Notes AUDIT-C (Standard) Did you have a drink containing alcohol in the past year? Yes How often did you have a drink containing alcohol in the past year? Daily or almost daily (4 points) How many drinks did you have on a typical day when you were drinking in the past year? 1 or 2 drinks (0 point) How often did you have six or more drinks on one occasion in the past year? 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[employer] Problems Problem Type SNOMED Code ICD Code Onset Dates Problem Status W/U Status Risk Notes Problem Iron deficiency anemia (07996855) Iron deficiency anemia (D50.9) Active confirmed Problem Anemia (068609911) Anemia (D64.9) Active confirmed Vital Signs Temperature 97.3 degrees Fahrenheit 11/11/2024 Blood pressure diastolic 01 mm Hg 11/11/2024 Height 66 in 11/11/2024 Blood pressure systolic 001 mm Hg 11/11/2024 Weight 150.8 lbs 11/11/2024 BMI 24.34 kg/m2 11/11/2024 Procedures Procedure Date Ordered Date Performed Result Body Sit e UPPER GI ENDOSCOPY 11/11/2024 N/A COLONOSCOPY 11/11/2024 N/A Encounters Encounter Location Date Provider Diagnosis [facility] [address] [place], [place] [id number] 12/03/2024 J Luis Alfonso [facility] [address] [facility] [address] [place] [address] 11/11/2024 J Luis Alfonso Iron deficiency anemia D50.9 and History of colon polyps Z86.0100 [facility] [address] [place] [address] 12/06/2024 J Luis Alfonso Anemia D64.9 [facility] [address] [place] [address] 05/15/2024 J Luis Alfonso [facility] [address] [place] [address] 07/02/2024 J Luis Alfonso [facility] [address] [place] [address] 11/11/2024 J Luis Alfonso [facility] [address] [place] [address] 11/30/2024 J Luis Alfonso [facility] [address] [place] [address] 12/03/2024 J Luis Alfonso [facility] [address] [place] [address], [place] [address] 12/03/2024 J Luis Alfonso Assessments Encounter Date [...] to keep you advised of her progress. 12/06/2024 Anemia (ICD-10 - D64.9) Plan Of Treatment Pending Test Test Name Order Date UPPER GI ENDOSCOPY 11/11/2024 COLONOSCOPY 11/11/2024 IRON + IBC (FE) 11/11/2024 IRON + IBC (FE) 12/06/2024 CBC w DIFF 12/06/2024 CBC w DIFF 11/11/2024 Ferritin 12/06/2024 Vitamin B12 12/06/2024 Pathology 12/03/2024 Next Appt Details Provider Name:J Luis Alfonso , 05/07/2025 03:00:00 PM, [address] [place] [address], [facility] [address], [place], [address], Insurance Providers Payer Name Payer Address Payer Phone Subscriber Number Group Number Insured Name Patient Relationship to Insured Coverage Start Date Coverage End Date [employer] [address] [address] [place] [address] [id number] [employer] Self - patient is the insured Medical (General) History Medical History History ICD Code COPD Colonoscopy [place] [address] Aldana with removal of 2 tubular adenomas and removal of hyperplastic polyps Iron def. anemia- Hgb 9.2 in 04/2024 wit h MCV 77 Hospitalization History Reason Date(Month/Year) pneumonia
== END 2025-05-03 15:50 | disposition home or self-care (01) ==
LOC: HO.LAB 15:49
PROVIDERS: PCP Physician Assistant Medical; Visit Provider Internal Medicine
DX: D64.9 Anemia, unspecified (principal)
CPT/HCPCS: 36415; 82607; 82728; 83540; 85025